=== PATIENT | female | born 1995 | race Caucasian/White ===

== ENCOUNTER 2017-11-25 00:51 | Emergency (ER) | payer SELFPAY ==
[2017-11-25] MEDS ORDERED: HYDROCODONE/ACETAMINOPHEN 5-325 MG TABLET PO ONE (02:23)
[2017-11-25] MEDS ORDERED: CLINDAMYCIN HCL 150 MG CAPSULE PO ONE (02:23)
--- NOTE | 2017-11-25 03:00 | ER Document Report ---
ED General - General Chief Complaint: Abscess Stated Complaint: BUMP UNDER LT ARMPIT Time Seen by Provider: 11/25/17 01:56 Mode of Arrival: Ambulatory Information source: Patient Notes: 22-year-old female patient who presents to the emergency department with several complaints. Patient reports pain to her right upper and lower teeth for the last 30 days. Patient reports that she last saw her dentist about 6 months ago and had a normal exam however patient reports that now she has found holes in her upper and lower teeth that have now began to cause her significant pain. Patient also reports possible abscess to her left axilla area. Patient reports that one area has been draining. Patient denies any history of same. Denies any history of MRSA. TRAVEL OUTSIDE OF THE [place] IN LAST 30 DAYS: No - Related Data Allergies/Adverse Reactions: latex Allergy (Verified 11/25/17 00:57) Past Medical History - General Information source: Patient - Social History Smoking Status: Never Smoker Frequency of alcohol use: None Drug Abuse: None Lives with: Parents Family History: Reviewed & Not Pertinent - Medical History Medical History: Negative Surgical Hx: Negative Review of Systems - Review of Systems Constitutional: No symptoms reported EENT: Dental problem Cardiovascular: No symptoms reported Respiratory: No symptoms reported Gastrointestinal: No symptoms reported Genitourinary: No symptoms reported Female Genitourinary: No symptoms reported Musculoskeletal: No symptoms reported Skin: Lumps - Left axilla Hematologic/Lymphatic: No symptoms reported Neurological/Psychological: No symptoms reported Physical Exam - Vital signs Vitals: Temp Pulse Resp BP Pulse Ox 98.1 F 82 16 121/60 100 11/25/17 01:37 11/25/17 01:37 11/25/17 01:37 11/25/17 01:37 11/25/17 01:37 - Notes Notes: PHYSICAL EXAMINATION: GENERAL: Well-appearing, well-nourished and in no acute distress. HEAD: Atraumatic, normocephalic. EYES: Pupils equal round and reactive to light, extraocular movements intact, conjunctiva are normal. ENT: Nares patent, oropharynx clear without exudates. Moist mucous membranes. Multiple dental carries to right upper and lower teeth. NECK: Normal range of motion, supple without lymphadenopathy LUNGS: Breath sounds clear to auscultation bilaterally and equal. No wheezes rales or rhonchi. HEART: Regular rate and rhythm without murmurs ABDOMEN: Soft, nontender, nondistended abdomen. No guarding, no rebound. No masses appreciated. Female : deferred Musculoskeletal: Normal range of motion, no pitting or edema. No cyanosis. NEUROLOGICAL: Cranial nerves grossly intact. Normal speech, normal gait. Normal sensory, motor exams PSYCH: Normal mood, normal affect. SKIN: Multiple areas of redness and swelling noted to left axilla. One large area with fluctuance and induration noted. Course - Re-evaluation Re-evalutation: Incision and drainage performed to left axilla. Moderate amount of serosanguineous fluid removed. Patient did have persistent bleeding after the I &D. TXA was applied on the gauze pad to the wound with adequate hemostasis. Patient will be placed on Bactroban for possible folliculitis and also clindamycin to treat the abscess as well as the dental infection. Patient will be given contact info for [facility]. - Vital Signs Vital signs: Temp Pulse Resp BP Pulse Ox 98.0 F 94 20 117/70 99 11/25/17 03:30 11/25/17 03:30 11/25/17 03:30 11/25/17 03:30 11/25/17 03:30 Procedures - Incision and Drainage left axilla Type: Simple Anesthetic type: 1% Lidocaine mL's of anesthetic: 3 Blade size: 11 Incision Method: Incision made by scalpel Amount/type of drainage: serosanguinous Discharge - Discharge Clinical Impression: Folliculitis, Infected dental carries Condition: Stable Disposition: HOME, SELF-CARE Additional Instructions: Folliculitis You have a skin infection called folliculitis. This occurs when bacteria infect the hair follicles of the skin. Typically, redness and small pustules are found where hair shafts enter the skin. Allergy, surface irritation, shaving, and exposure to hot tubs predispose to folliculitis. The usual treatment is antibiotic ointment, sometimes combined with cortisone-type medication. Warm compresses are often used. If the infection has moved deeper into the skin, oral antibiotics may be necessary. To avoid future episodes of folliculitis, you must identify (if possible) the factors which allowed this infection to start. If you develop increasing pain, swelling, fever, or red streaks, call the doctor or return for re-evaluation. Dental Infection or Abscess You have an infection, perhaps an abscess (pus formation) of the gum around one of your teeth, which is probably decayed. If there is an abscess, it may drain on its own or it may need to be opened or lanced. Severe swelling or drainage around a tooth usually means a deep dental abscess which usually requires evaluation and treatment by a dentist or oral surgeon. Antibiotics may be prescribed while awaiting dental treatment. If you develop high fever with chills, worsening pain, or increasing swelling in the area, see a dentist or oral surgeon immediately or return to the Emergency Department immediately. Prescriptions: Clindamycin HCl 300 mg PO TID #21 capsule Ibuprofen 800 mg PO TID #30 tablet Mupirocin Calcium [Bactroban] 30 gm TP TID #30 gr Referrals: [facility] [Provider Group] - Follow up as needed
[2017-11-25] MEDS ORDERED: TRANEXAMIC ACID INJ/PF 1,000 MG/10 ML SDV IV ONE (03:45)
[2017-11-25 05:12] VITALS: BP 117/70
== END 2017-11-25 03:59 | disposition home or self-care (01) ==
LOC: ER 00:51
DX: L73.9 Follicular disorder, unspecified (principal); K04.7 Periapical abscess without sinus; K02.9 Dental caries, unspecified; K08.89 Other specified disorders of teeth and supporting structures; Z91.040 Latex allergy status
CPT/HCPCS: 99283; 96374; 10060; J3490

== ENCOUNTER 2020-04-12 14:45 | Inpatient (IN) | payer MEDICAID ==
--- NOTE | 2020-04-12 15:15 | ER Document Report ---
ED Medical Screen (RME) - General Chief Complaint: Shortness Of Breath Stated Complaint: SHORT OF BREATH,HEART BEATING FAST Time Seen by Provider: 04/12/20 15:08 Mode of Arrival: Wheelchair Information source: Patient Notes: 25-year-old female presented to ED for complaint of shortness of breath since yesterday. She states she does have a history of bronchitis and SVT. She does have a pulse of 129. Her lungs are clear at this time. She states she was afraid it is her heart. She is not complaining of pain but very short of breath unable to get a deep breath. I have ordered EKG blood work chest x-ray and Covid testing. Patient's lungs are clear to auscultation. I have greeted and performed a rapid initial assessment of this patient. A comprehensive ED assessment and evaluation of the patient, analysis of test results and completion of medical decision making process will be conducted by an additional ED providers. TRAVEL OUTSIDE OF THE [place] IN LAST 30 DAYS: No - Related Data Allergies/Adverse Reactions: latex Allergy (Verified 11/25/17 00:57) Past Medical History Renal/ Medical History: Denies: Hx Peritoneal Dialysis Physical Exam - Vital signs Vitals: Temp Pulse Resp BP Pulse Ox 98.6 F 129 H 20 145/94 H 100 04/12/20 14:50 04/12/20 14:50 04/12/20 14:50 04/12/20 14:50 04/12/20 14:50 Course - Vital Signs Vital signs: Temp Pulse Resp BP Pulse Ox 98.6 F 129 H 20 145/94 H 100 04/12/20 14:50 04/12/20 14:50 04/12/20 14:50 04/12/20 14:50 04/12/20 14:50
--- NOTE | 2020-04-12 16:01 | RADIOLOGY REPORT (SQ) ---
EXAM DESCRIPTION: CHEST SINGLE VIEW IMAGES COMPLETED DATE/TIME: 04/12/2020 3:50 pm REASON FOR STUDY: rapid heart rate short of breath COMPARISON: None. EXAM PARAMETERS: NUMBER OF VIEWS: One view. TECHNIQUE: Single frontal radiographic view of the chest acquired. RADIATION DOSE: NA LIMITATIONS: None. FINDINGS: LUNGS AND PLEURA: Faint density in the right upper lobe just below the level of the clavic le. A few streaky densities in the left lung base. No pleural effusion or pneumothorax. MEDIASTINUM AND HILAR STRUCTURES: No masses. Contour normal. HEART AND VASCULAR STRUCTURES: Heart normal in size. Normal vasculature. BONES: No acute findings. HARDWARE: None in the chest. OTHER: No other significant finding. IMPRESSION: FAINT DENSITY IN THE RIGHT UPPER LOBE SUSPICIOUS FOR PNEUMONIA. UNDERLYING MASS ALSO PO SSIBLE. POSSIBLE DEVELOPING PNEUMONIA IN THE LEFT LUNG BASE WELL. TECHNICAL DOCUMENTATION: JOB ID: [id number] 2010 [employer]- All Rights Reserved Reading location - IP/workstation name: [email or web address]
--- NOTE | 2020-04-12 16:38 | EKG REPORT ---
SEVERITY:- ABNORMAL ECG - SINUS TACHYCARDIA PROBABLE LEFT ATRIAL ABNORMALITY PROBABLE LEFT VENTRICULAR HYPERTROPHY INFERIOR Q WAVES, PROBABLY NORMAL VARIATION : Confirmed by: Dudley Santiago MD 12-Apr-2020 16:37:48
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
[2020-04-12] MEDS ORDERED: NORMAL SALINE 1000 ML 1,000 ML IV ONE (18:43)
[2020-04-12] MEDS ORDERED: KETOROLAC TROMETHAMINE INJ/PF 30 MG/1 ML SDV IV ONE (18:43)
[2020-04-12 20:06] LABS: ABSOLUTE LYMPHOCYTES (AUTO) 1.5 10^3/uL (0.5-4.7); ABSOLUTE MONOCYTES (AUTO) 0.9 10^3/uL (0.1-1.4); ABSOLUTE NEUT (AUTO) 9.9 10^3/uL (1.7-8.2); BASOPHILS % (AUTO) 0.2 % (0-2); EOSINOPHILS % (AUTO) 0.1 % (0-6); HEMATOCRIT 38.7 % (36.0-47.0); HEMOGLOBIN 13.4 g/dL (12.0-15.5); LYMPHOCYTES % (AUTO) 12.4 % (13-45); MEAN CORPUSCULAR HEMOGLOBIN 28.8 pg (27.0-33.4); MEAN CORPUSCULAR HGB CONC 34.7 g/dL (32.0-36.0); MEAN CORPUSCULAR VOLUME 83 fl (80-97); MONOCYTES % (AUTO) 6.9 % (3-13); PLATELET COUNT 202 10^3/uL (150-450); RED BLOOD COUNT 4.66 10^6/uL (3.72-5.28); SEGMENTED NEUTROPHILS % (AUTO) 80.4 % (42-78); TOTAL CELLS COUNTED % (AUTO) 100 %; WHITE BLOOD COUNT 12.3 10^3/uL (4.0-10.5)
[2020-04-12 20:24] LABS: A TYPE INFLUENZA AG NEGATIVE (NEGATIVE); B INFLUENZA AG NEGATIVE (NEGATIVE)
[2020-04-12 20:30] LABS: ALBUMIN 4.4 g/dL (3.5-5.0); ALKALINE PHOSPHATASE 102 U/L (38-126); ANION GAP 12 (5-19); ASPARTATE AMINO TRANSFERASE 100 U/L (14-36); BILIRUBIN,DIRECT 0.9 mg/dL (0.0-0.4); BILIRUBIN,TOTAL 1.9 mg/dL (0.2-1.3); BLOOD UREA NITROGEN 10 mg/dL (7-20); CALCIUM 9.4 mg/dL (8.4-10.2); CARBON DIOXIDE 23 mmol/L (22-30); CHLORIDE 95 mmol/L (98-107); GLUCOSE 121 mg/dL (75-110); POTASSIUM 4.3 mmol/L (3.6-5.0)
[2020-04-12 20:55] LABS: APPEARANCE,URINE SLIGHTLY-CLOUDY; BILIRUBIN,URINE SMALL (NEGATIVE); COLOR,URINE AMBER; GLUCOSE, URINE NEGATIVE (NEGATIVE); KETONES,URINE NEGATIVE (NEGATIVE); LEUKOCYTE ESTERASE,URINE NEGATIVE (NEGATIVE); NITRITE,URINE NEGATIVE (NEGATIVE); PROTEIN,URINE 100 mg/dL (NEGATIVE); URINE SPECIFIC GRAVITY 1.031
[2020-04-12] MEDS ORDERED: AZITHROMYCIN INJ 500 MG VIAL IV ONE (21:04)
[2020-04-12] MEDS ORDERED: CEFTRIAXONE 1 GM/D5W RTU 1 GM/50 ML RTUPB IV ONE (21:04)
[2020-04-12] MEDS ORDERED: DEXAMETHASONE SOD PHOS INJ 10 MG/1 ML VIAL IV ONE (21:05)
[2020-04-12 21:12] LABS: URINE BARBITURATES SCREEN NEGATIVE; URINE BENZODIAZEPINES SCREEN NEGATIVE; URINE COCAINE SCREEN NEGATIVE; URINE METHADONE SCREEN NEGATIVE; URINE PHENCYCLIDINE SCREEN NEGATIVE
--- NOTE | 2020-04-12 21:13 | RADIOLOGY REPORT (SQ) ---
EXAM DESCRIPTION: CT CHEST ANGIOGRAPHY WITHOUT THEN WITH IV CONTRAST COMPLETED DATE/TME: 04/12/2020 18:25 CLINICAL HISTORY: 25 years, Female, sob, pleuritic pain, possibel pneumonia COMPARISON: Chest radiograph performed earlier the same day TECHNIQUE: Contrast enhanced CT chest was acquired. Images were obtained after the administration of 63 mL of Omnipaque 350 intravenous contrast. MIPS were created. Images stored on PACS. All CT scanners at this facility use dose modulation, iterative reconstruction, and/or weight based dosing when appropriate to reduce radiation dose to as low as reasonably achievable (ALARA). [facility]: Dose Right [facility]: CareDose [facility]: Dose Right [facility]: Teradose 4D [facility]: Bunkr LIMITATIONS: None. FINDINGS: Central airways are patent. Lung windows show multifocal nodular consolidative opacities throughout the periphery of both lungs, some of which appear masslike. More confluent areas of consolidation are evident about the right middle lobe medial segment, lingula, and superior segment of the right lower lobe. A few of the more nodular areas of consolidation are as follows: Nodular consolidative opacity located within the paramediastinal right lower lobe on image 77 of series 4 measuring 2.0 x 1.3 cm in size. Additional subpleural nodule within the right lower lobe measuring 0.9 x 0.7 cm in size on image 67 of series 4. Mediastinal windows show a few mildly prominent left supraclavicular lymph nodes. For example, there is an enlarged left supraclavicular lymph node on image 27 of series 2 measuring 1.5 x 1.0 cm in size. An additional enlarged right hilar lymph node is evident measuring 1.7 x 1.2 cm in size on image 97 of series 2. Prep there is also a mildly enlarged right paratracheal lymph node on image 21 of series 3 measuring 1.1 x 1.5 cm in size. Heart shows no suspicious abnormality. The study is substantially limited for the evaluation of pulmonary emboli secondary to inadequate contrast bolus timing. No large central filling defect is identified. The graft Limited evaluation of the upper abdomen reveals that the liver is diffusely heterogenous in attenuation, especially throughout the right hepatic lobe. No additional suspicious findings are evident within the imaged upper abdomen. Bone windows show no destructive osseous lesions. IMPRESSION: Substantially limited evaluation for pulmonary emboli secondary to inadequate contrast bolus timing. No large central filling defect identified. Multifocal consolidative opacity throughout both lungs, much of which appears nodular. Given the patient's age, this is most likely indicative of a multifocal atypical infectious/inflammatory process (to include septic emboli given the peripheral predominance). Follow-up to clearing is recommended. Diffusely heterogeneously attenuating liver parenchyma, especially about the right hepatic lobe, indeterminate. This could indicate geographic areas of hepatic steatosis. Recommend definitive assessment with multiphasic CT or MR of the abdomen. Left supraclavicular, mediastinal, and right hilar lymph node enlargement, presumably reactive. This can also be reassessed for resolution on follow-up imaging. TECHNICAL DOCUMENTATION: Quality ID # [id number]: Final reports with documentation of one or more dose reduction techniques (e.g., Automated exposure control, adjustment of the mA and/or kV according to patient size, use of iterative reconstruction technique) copyright 2011 [employer]- All Rights Reserved
[2020-04-12 21:19] LABS: URINE MARIJUANA (THC) SCREEN UNCONFIRMED POSITIVE
[2020-04-12] MEDS ORDERED: VANCOMYCIN HCL INJ 1000 MG VIAL IV ONE (21:43)
[2020-04-12] MEDS ORDERED: DEXAMETHASONE SOD PHOS INJ 10 MG/1 ML VIAL ONE (22:07)
[2020-04-12] MEDS ORDERED: ONDANSETRON HCL INJ/PF 4 MG/2 ML SDV IV PRN (22:52)
[2020-04-12] MEDS ORDERED: VANCOMYCIN HCL 0 MG in DEXTROSE 5%-WATER 250 ML IV NR (23:15)
[2020-04-12] MEDS ORDERED: NICOTINE 14 MG/24 HR PATCH.TD24 TD ONE (23:20)
--- NOTE | 2020-04-12 23:22 | PDOC H&P ---
History of Present Illness Patient complains of: Shortness of breath. Chest pain History of Present Illness: CLAUDIO EPSTEIN is a 25 year old female with no significant past medical history apart from an episode of SVT 6 years back now presents with 2 days duration of sudden onset chest pain, shortness of breath. She reports that the chest pain was 10/10 intensity, sharp, aggravated by deep breathing and movement. She also endorses subjective fever but denies any history of cough, runny nose, sore throat, congestion, nausea, vomiting or diarrhea. She also denies palpitation, orthopnea, PND. She has a history of IV drug use about a month back, the exact name of the drug which she could not remember without intent to harm herself but currently she denies any suicidal ideation. Denies any history of leg swelling, long distance travel or prolonged immobilization. She has no self or family history of blood clots in the past and currently is not on any medication including control. She denies any recent sick contact history. Social History Smoking Status: Current Every Day Smoker Frequency of Alcohol Use: None Hx Recreational Drug Use: Yes Drugs: Marijuana, Other - Patient could not remember the name - Advance Directive Resuscitation Status: Full Code Family History Family History: Reviewed & Not Pertinent Parental Family History Reviewed: Yes Children Family History Reviewed: Yes Sibling(s) Family History Reviewed.: Yes Medication/Allergy Home Medications: No Home Medications 04/13/20 Allergies/Adverse Reactions: latex Allergy (Verified 11/25/17 00:57) Review of Systems Constitutional: PRESENT: as per HPI Eyes: ABSENT: visual disturbances Ears: ABSENT: hearing changes Nose, Mouth, and Throat: ABSENT: as per HPI, headache(s), mouth pain, sore throat, vertigo, other Cardiovascular: PRESENT: as per HPI Respiratory: PRESENT: as per HPI Gastrointestinal: ABSENT: abdominal pain, bloating, coffee ground emesis, constipation, diarrhea, dysphagia, heartburn, hematemesis, hematochezia, melena, nausea, vomiting, other Genitourinary: ABSENT: dysuria, hematuria Musculoskeletal: ABSENT: joint swelling Integumentary: ABSENT: rash, wounds Neurological: ABSENT: abnormal gait, abnormal speech, confusion, dizziness, focal weakness, syncope Psychiatric: ABSENT: anxiety, depression, homidical ideation, suicidal ideation Endocrine: ABSENT: cold intolerance, heat intolerance, polydipsia, polyuria Hematologic/Lymphatic: ABSENT: easy bleeding, easy bruising Physical Exam Vital Signs: Temp Pulse Resp BP Pulse Ox 99.9 F 125 H 14 119/66 99 04/12/20 19:45 04/12/20 19:45 04/12/20 22:01 04/12/20 22:01 04/12/20 22:01 Intake & Output 04/11/20 04/12/20 04/13/20 06:59 06:59 06:59 Intake Total 1050 Balance 1050 Weight 85.6 kg Additional comments: GENERAL APPEARANCE: in no acute distress. Alert and oriented x4 HEENT: Normocephalic and atraumatic. No scleral icterus. Moist oral mucosa NECK: Supple. No evidence of thyroid enlargement. No lymphadenopathy or tenderness. No carotid bruit. No JVD CHEST: Symmetric. Nontender to palpation. LUNGS: Breath sounds are equal and clear bilaterally. No wheezes, rhonchi, or rales. HEART: Regular rate and rhythm with normal S1 and S2. No murmurs, gallops, or rubs. ABDOMEN: Soft, flat, positive bowel sounds, no tenderness, guarding, or rigidity. No organomegaly or mass appreciated. No CVA tenderness. EXTREMITIES: No cyanosis, clubbing, or edema. MUSCULOSKELETAL: No deformity, atrophy or swelling noted PSYCHIATRIC: Recent and remote memory is intact. Appropriate mood and affect. SKIN: Warm, dry, and well perfused. No lesions or rashes are noted. NEUROLOGIC: No focal sensory or motor deficits are noted. Results Laboratory Results: 04/12/20 19:35 04/12/20 19:35 04/12/20 04/12/20 04/12/20 19:35 19:35 19:35 WBC 12.3 H RBC 4.66 Hgb 13.4 Hct 38.7 MCV 83 MCH 28.8 MCHC 34.7 RDW 14.0 Plt Count 202 Seg Neutrophils % 80.4 H Sodium 129.9 L Potassium 4.3 Chloride 95 L Carbon Dioxide 23 Anion Gap 12 BUN 10 Creatinine 0.49 L Est GFR ( Amer) > 60 Glucose 121 H Calcium 9.4 Magnesium Total Bilirubin 1.9 H AST 100 H Alkaline Phosphatase 102 Total Protein 8.0 Albumin 4.4 Serum HCG, Qual NEGATIVE Urine Color Urine Appearance Urine pH Ur Specific [place] Urine Protein Urine Glucose (UA) Urine Ketones Urine Blood Urine Nitrite Ur Leukocyte Esterase Urine WBC (Auto) Urine RBC (Auto) 04/12/20 04/12/20 19:35 20:30 WBC RBC Hgb Hct MCV MCH MCHC RDW Plt Count Seg Neutrophils % Sodium Potassium Chloride Carbon Dioxide Anion Gap BUN Creatinine Est GFR ( Amer) Glucose Calcium Magnesium 1.9 Total Bilirubin AST Alkaline Phosphatase Total Protein Albumin Serum HCG, Qual Urine Color EDDIE Urine Appearance SLIGHTLY-CLOUDY Urine pH 5.0 Ur Specific [place] 1.031 Urine Protein 100 H Urine Glucose (UA) NEGATIVE Urine Ketones NEGATIVE Urine Blood NEGATIVE Urine Nitrite NEGATIVE Ur Leukocyte Esterase NEGATIVE Urine WBC (Auto) 2 Urine RBC (Auto) 13 04/12/20 19:35 Troponin I < 0.012 Impressions: Chest X-Ray 04/12/20 15:09 IMPRESSION: FAINT DENSITY IN THE RIGHT UPPER LOBE SUSPICIOUS FOR PNEUMONIA. UNDERLYING MASS ALSO POSSIBLE. POSSIBLE DEVELOPING PNEUMONIA IN THE LEFT LUNG BASE WELL. Chest/Abdomen CTA 04/12/20 18:25 IMPRESSION: Substantially limited evaluation for pulmonary emboli secondary to inadequate contrast bolus timing. No large central filling defect identified. Multifocal consolidative opacity throughout both lungs, much of which appears nodular. Given the patient's age, this is most likely indicative of a multifocal atypical infectious/inflammatory process (to include septic emboli given the peripheral predominance). Follow-up to clearing is recommended. Diffusely heterogeneously attenuating liver parenchyma, especially about the right hepatic lobe, indeterminate. This could indicate geographic areas of hepatic steatosis. Recommend definitive assessment with multiphasic CT or MR of the abdomen. Left supraclavicular, mediastinal, and right hilar lymph node enlargement, presumably reactive. This can also be reassessed for resolution on follow-up imaging. TECHNICAL DOCUMENTATION: Quality ID # [id number]: Final reports with documentation of one or more dose reduction techniques (e.g., Automated exposure control, adjustment of the mA and/or kV according to patient size, use of iterative reconstruction technique) copyright 2011 [id number]- All Rights Reserved Assessment and Plan - Diagnosis (1) Observation for suspected infectious endocarditis Is this a current diagnosis for this admission?: Yes Plan: Possible right-sided infective endocarditis Has 3 minor criterions: a history of IV drug use, subjective fever and possible septic pulmonary emboli 2 sets of blood culture have been obtained Started on vancomycin Obtain 2D echo in the morning (2) Pneumonia Qualifiers: Pneumonia type: due to unspecified organism Laterality: bilateral Lung location: unspecified part of lung Qualified Code(s): J18.9 - Pneumonia, unspecified organism Is this a current diagnosis for this admission?: Yes Plan: Patient presents with pleuritic chest pain and shortness of breath CTA chest showed multifocal consolidative opacities possibly infe ctious/inflammatory versus septic emboli Patient was given ceftriaxone and azithromycin at the ED Currently on vancomycin and will add azithromycin to cover atypicals Continue supportive management for fever Follow-up with blood culture (3) Suspected COVID-19 virus infection Is this a current diagnosis for this admission?: Yes Plan: Patient presents with shortness of breath, chest pain, subjective fever CTA chest concerning for multifocal pneumonia likely viral versus septic emboli Patient currently saturating well on room air denies cough On special enhanced airborne isolation Follow-up with COVID-19 result (4) Transaminitis Is this a current diagnosis for this admission?: Yes Plan: Liver enzymes are elevated on presentation CTA was suggestive of possible hepatic steatosis Will obtain hepatitis panel due to history of IV drug use Continue supportive care (5) Tobacco dependence Is this a current diagnosis for this admission?: Yes Plan: Counseled on the harms of smoking and advised her to quit Will place her on nicotine patch while inpatient (6) IV drug user Is this a current diagnosis for this admission?: Yes Plan: Patient reports a history of IV drug use few weeks back is the intent to harm herself Currently denies any suicidal or homicidal ideation Counseled and advised patient to quit IV drug abuse - Time Time Spent with patient: 35 or more minutes Total Critical Time (Minutes): 45 Smoking Cessation Education: 3 to 10 minutes Medications reviewed and adjusted accordingly: Yes Anticipated Discharge Disposition: Home, Self Care Anticipated Discharge Timeframe: within 72 hours - Inpatient Certification Based on my medical assessment, after consideration of the patient's comorbidities, presenting symptoms, or acuity I expect that the services needed warrant INPATIENT care.: Yes I certify that my determination is in accordance with my understanding of Medicare's requirements for reasonable and necessary INPATIENT services [42 CFR 412.3e].: Yes Medical Necessity: Need Close Monitoring Due to Risk of Patient Decompensation, Need For Continuous Telemetry Monitoring, Need for IV Antibiotics Post Hospital Care: D/C or Transfer Summary
[2020-04-13] MEDS: FAMOTIDINE 20 MG TABLET PO SCH ×3 (01:05→21:41)
[2020-04-13] MEDS: RINGERS SOLUTION,LACTATED 1,000 ML IV PRN ×2 (03:17→18:14)
[2020-04-13 04:22] LABS: ABSOLUTE LYMPHOCYTES (AUTO) 1.1 10^3/uL (0.5-4.7); ABSOLUTE MONOCYTES (AUTO) 0.4 10^3/uL (0.1-1.4); ABSOLUTE NEUT (AUTO) 10.3 10^3/uL (1.7-8.2); BASOPHILS % (AUTO) 0.1 % (0-2); EOSINOPHILS % (AUTO) 0.1 % (0-6); HEMATOCRIT 39.3 % (36.0-47.0); HEMOGLOBIN 13.4 g/dL (12.0-15.5); LYMPHOCYTES % (AUTO) 9.1 % (13-45); MEAN CORPUSCULAR HEMOGLOBIN 28.2 pg (27.0-33.4); MEAN CORPUSCULAR VOLUME 83 fl (80-97); MONOCYTES % (AUTO) 3.2 % (3-13); PLATELET COUNT 185 10^3/uL (150-450); RED BLOOD COUNT 4.73 10^6/uL (3.72-5.28); RED CELL DISTRIBUTION WIDTH 13.9 % (11.5-14.0); SEGMENTED NEUTROPHILS % (AUTO) 87.5 % (42-78); TOTAL CELLS COUNTED % (AUTO) 100 %; WHITE BLOOD COUNT 11.8 10^3/uL (4.0-10.5)
[2020-04-13 04:41] LABS: ALBUMIN 3.9 g/dL (3.5-5.0); ALKALINE PHOSPHATASE 92 U/L (38-126); ANION GAP 9 (5-19); ASPARTATE AMINO TRANSFERASE 73 U/L (14-36); BILIRUBIN,DIRECT 0.8 mg/dL (0.0-0.4); BILIRUBIN,TOTAL 1.5 mg/dL (0.2-1.3); BLOOD UREA NITROGEN 8 mg/dL (7-20); CALCIUM 9.4 mg/dL (8.4-10.2); CARBON DIOXIDE 26 mmol/L (22-30); CHLORIDE 101 mmol/L (98-107); GLUCOSE 189 mg/dL (75-110); POTASSIUM 4.1 mmol/L (3.6-5.0); TOTAL PROTEIN 7.5 g/dL (6.3-8.2)
[2020-04-13] MEDS: ENOXAPARIN SODIUM INJ 40 MG/0.4 ML DISP.SYRIN SUBCUT SCH (10:17)
[2020-04-13] MEDS ORDERED: PHARMACY COMMUNICATION ORDER MC NR (11:15)
[2020-04-13] MEDS: VANCOMYCIN HCL 1,500 MG in DEXTROSE 5%-WATER 250 ML IV SCH ×2 (11:30→18:14)
[2020-04-13] MEDS: AZITHROMYCIN 500 MG in DEXTROSE 5%-WATER 250 ML IV SCH (14:03)
--- NOTE | 2020-04-13 14:39 | PDOC PROGRESS REPORT ---
Subjective Progress Note for:: 04/13/20 Subjective:: Patient is resting upright in bed. She is pleasant and tells me she came in with concerns of chest pain and SOB. Denies SOB, chest pain, palpitations or cough. Her only complaint at this time that she feels achy and generally weak. No further complaints or concerns. Reason For Visit: POSSIBLE INFECTIVE ENDOCARDITIS COVID-19 SUSPECT Physical Exam Vital Signs: Temp Pulse Resp BP Pulse Ox 98.0 F 106 H 25 H 130/76 H 98 04/13/20 10:00 04/13/20 14:00 04/13/20 14:00 04/13/20 14:00 04/13/20 14:00 Intake & Output 04/12/20 04/13/20 04/14/20 06:59 06:59 06:59 Intake Total 1050 1150 Output Total 0 Balance 1050 1150 Weight 83.7 kg General appearance: PRESENT: no acute distress, cooperative, well-developed, well-nourished Head exam: PRESENT: atraumatic, normocephalic Eye exam: PRESENT: conjunctiva pink, EOMI. ABSENT: scleral icterus Mouth exam: PRESENT: moist, tongue midline Neck exam: PRESENT: full ROM. ABSENT: JVD, tenderness Respiratory exam: PRESENT: clear to auscultation otilia, symmetrical, unlabored. ABSENT: crackles, wheezes Cardiovascular exam: PRESENT: RRR, +S1, +S2, tachycardia. ABSENT: diastolic murmur, systolic murmur Pulses: PRESENT: normal radial pulses GI/Abdominal exam: PRESENT: normal bowel sounds, soft. ABSENT: firm, guarding, tenderness Extremities exam: PRESENT: full ROM. ABSENT: clubbing, pedal edema, tenderness Musculoskeletal exam: PRESENT: ambulatory, full ROM. ABSENT: deformity, dislocation Neurological exam: PRESENT: alert, awake, oriented to person, oriented to place, oriented to time, oriented to situation, CN II-XII grossly intact. ABSENT: motor sensory deficit Psychiatric exam: PRESENT: appropriate affect, normal mood. ABSENT: suicidal ideation Skin exam: PRESENT: dry, intact, warm Results Laboratory Results: 04/13/20 03:58 04/13/20 03:58 04/12/20 04/12/20 04/12/20 19:35 19:35 19:35 WBC 12.3 H RBC 4.66 Hgb 13.4 Hct 38.7 MCV 83 MCH 28.8 MCHC 34.7 RDW 14.0 Plt Count 202 Seg Neutrophils % 80.4 H Sodium 129.9 L Potassium 4.3 Chloride 95 L Carbon Dioxide 23 Anion Gap 12 BUN 10 Creatinine 0.49 L Est GFR ( Amer) > 60 Glucose 121 H Calcium 9.4 Magnesium Total Bilirubin 1.9 H AST 100 H Alkaline Phosphatase 102 Total Protein 8.0 Albumin 4.4 Serum HCG, Qual NEGATIVE Urine Color Urine Appearance Urine pH Ur Specific [place] Urine Protein Urine Glucose (UA) Urine Ketones Urine Blood Urine Nitrite Ur Leukocyte Esterase Urine WBC (Auto) Urine RBC (Auto) 04/12/20 04/12/20 04/13/20 19:35 20:30 03:58 WBC 11.8 H RBC 4.73 Hgb 13.4 Hct 39.3 MCV 83 MCH 28.2 MCHC 34.0 RDW 13.9 Plt Count 185 Seg Neutrophils % 87.5 H Sodium Potassium Chloride Carbon Dioxide Anion Gap BUN Creatinine Est GFR ( Amer) Glucose Calcium Magnesium 1.9 Total Bilirubin AST Alkaline Phosphatase Total Protein Albumin Serum HCG, Qual Urine Color EDDIE Urine Appearance SLIGHTLY-CLOUDY Urine pH 5.0 Ur Specific [place] 1.031 Urine Protein 100 H Urine Glucose (UA) NEGATIVE Urine Ketones NEGATIVE Urine Blood NEGATIVE Urine Nitrite NEGATIVE Ur Leukocyte Esterase NEGATIVE Urine WBC (Auto) 2 Urine RBC (Auto) 13 04/13/20 03:58 WBC RBC Hgb Hct MCV MCH MCHC RDW Plt Count Seg Neutrophils % Sodium 136.4 L Potassium 4.1 Chloride 101 Carbon Dioxide 26 Anion Gap 9 BUN 8 Creatinine 0.52 Est GFR ( Amer) > 60 Glucose 189 H Calcium 9.4 Magnesium Total Bilirubin 1.5 H AST 73 H Alkaline Phosphatase 92 Total Protein 7.5 Albumin 3.9 Serum HCG, Qual Urine Color Urine Appearance Urine pH Ur Specific [place] Urine Protein Urine Glucose (UA) Urine Ketones Urine Blood Urine Nitrite Ur Leukocyte Esterase Urine WBC (Auto) Urine RBC (Auto) 04/12/20 19:35 Troponin I < 0.012 Impressions: Chest X-Ray 04/12/20 15:09 IMPRESSION: FAINT DENSITY IN THE RIGHT UPPER LOBE SUSPICIOUS FOR PNEUMONIA. UNDERLYING MASS ALSO POSSIBLE. POSSIBLE DEVELOPING PNEUMONIA IN THE LEFT LUNG BASE WELL. Chest/Abdomen CTA 04/12/20 18:25 IMPRESSION: Substantially limited evaluation for pulmonary emboli secondary to inadequate contrast bolus timing. No large central filling defect identified. Multifocal consolidative opacity throughout both lungs, much of which appears nodular. Given the patient's age, this is most likely indicative of a multifocal atypical infectious/inflammatory process (to include septic emboli given the peripheral predominance). Follow-up to clearing is recommended. Diffusely heterogeneously attenuating liver parenchyma, especially about the right hepatic lobe, indeterminate. This could indicate geographic areas of hepatic steatosis. Recommend definitive assessment with multiphasic CT or MR of the abdomen. Left supraclavicular, mediastinal, and right hilar lymph node enlargement, presumably reactive. This can also be reassessed for resolution on follow-up imaging. TECHNICAL DOCUMENTATION: Quality ID # [id number]: Final reports with documentation of one or more dose reduction techniques (e.g., Automated exposure control, adjustment of the mA and/or kV according to patient size, use of iterative reconstruction technique) copyright 2011 [employer]- All Rights Reserved Assessment and Plan - Diagnosis (1) Observation for suspected infectious endocarditis Is this a current diagnosis for this admission?: Yes (2) Pneumonia Qualifiers: Pneumonia type: due to unspecified organism Laterality: bilateral Lung location: unspecified part of lung Qualified Code(s): J18.9 - Pneumonia, unspecified organism Is this a current diagnosis for this admission?: Yes (3) Suspected COVID-19 virus infection Is this a current diagnosis for this admission?: Yes (5) Transaminitis Is this a current diagnosis for this admission?: Yes (6) IV drug user Is this a current diagnosis for this admission?: Yes (7) Tobacco dependence Is this a current diagnosis for this admission?: Yes (8) Gram-positive cocci bacteremia Is this a current diagnosis for this admission?: Yes (9) Opioid dependence Qualifiers: Substance use status: uncomplicated Qualified Code(s): F11.20 - Opioid dependence, uncomplicated Is this a current diagnosis for this admission?: Yes - Plan Summary Summary: Observation for suspected infectious endocarditis Possible right-sided infective endocarditis Has 3 minor criterions: a history of IV drug use, subjective fever and possible septic pulmonary emboli BC pending Echo pending Tx: vancomycin Pneumonia: CTA chest showed multifocal consolidative opacities possibly infectious/inflammatory versus septic emboli Pleuritic CP and SOB have both improved. Tx: Vancomycin and azithromycin to cover atypicals Gram positive cocie bacteremia: Tx as above. Repeat BC pending. Suspected COVID-19 virus infection: CTA chest concerning for multifocal pneumonia likely viral versus septic emboli On special enhanced airborne isolation Follow-up with COVID-19 result Transaminitis Liver enzymes are elevated on presentation CTA was suggestive of possible hepatic steatosis Hepatitis panel pending Denies Abd pain at this time. Denies known hx hepatitis. Continue to monitor. Consider further imaging. Tobacco dependence: Encourage quitting. Cnt nicotine patch. IV drug user: Several weeks prior with intent to harm. Denies SI today. Counseled and advised patient to quit IV drug abuse Opiod dependence: Pt with history of opioid withdrawal. Initiate Suboxone if needed. - Time Time Spent with patient: 15-24 minutes Smoking Cessation Education: 3 to 10 minutes Medications reviewed and adjusted accordingly: Yes Anticipated Discharge Disposition: Home, Self Care Anticipated Discharge Timeframe: within 72 hours
--- NOTE | 2020-04-13 19:23 | XCELERA REPORT ---
[address] [address] Transthoracic Echocardiogram Report Name: CLAUDIO EPSTEIN Age: 25 yrs Gender: Female : 1995 Patient Status: Inpatient Patient Location: ICU^[id number] Study Date: 04/13/2020 10:06 AM History: Infective Endocsrditis Height: 66 in Weight: 188 lb BSA: 1.9 m2 Procedure: A complete two-dimensional transthoracic echocardiogram was performed (2D, M-mode, spectral and color flow Doppler). The study was technically difficult with many images being suboptimal in quality. Reason For Study: Possible infective endocarditis Previous Evaluation: No previous studies were available. History: Infective Endocsrditis. Ordering Physician: BIRGIT SANON Performed By: Yolanda Alvarez Interpretation Summary No obvious vegetation is noted. Consider JOAO if clinically indicated. Left ventricular systolic function is normal. The Ejection Fraction estimate is 55-60% The right ventricle is normal in size and function. There is a trace amount of mitral regurgitation There is no aortic valve stenosis There is a trace or physiologic amount of tricuspid regurgitation There is no pericardial effusion. No obvious vegetation is noted. Consider JOAO if clinically indicated. MMode/2D Measurements & Calculations RVDd: 2.4 cm LVIDd: 4.4 cm FS: 34.4 % Ao root diam: 2.1 cm IVSd: 0.97 cm LVIDs: 2.9 cm EDV(Teich): 89.0 ml Ao root area: 3.5 cm2 LVPWd: 0.97 cm ESV(Teich): 32.3 ml EF(Teich): 63.7 % Doppler Measurements & Calculations MV E max kelvin: MV dec slope: Ao V2 max: LV V1 max P.1 cm/sec 767.6 cm/sec2 160.5 cm/sec 5.4 mmHg MV A max kelvin: MV dec time: 0.14 secAo max PG: LV V1 max: 84.6 cm/sec 10.3 mmHg 116.6 cm/sec MV E/A: 1.3 PA V2 max: 108.9 cm/sec PA max P.7 mmHg Left Ventricle The left ventricle is normal in size. There is normal left ventricular wall thickness. Left ventricular systolic function is normal. The Ejection Fraction estimate is 55-60%. Doppler measurements suggest normal left ventricular diastolic function. No regional wall motion abnormalities noted. Right Ventricle The right ventricle is normal in size and function. Mitral Valve The mitral valve leaflets appear thickened, but open well. There is no evidence of mitral valve prolapse. There is no vegetation seen on the mitral valve. There is no mitral valve stenosis. There is a trace amount of mitral regurgitation. Aortic Valve The aortic valve is trileaflet. The aortic valve opens well. The aortic valve is not well visualized secondary to technical limitations. There is no aortic valvular vegetation. There is no aortic valve stenosis. No aortic regurgitation is present. Tricuspid Valve The tricuspid valve is normal in structure and function. There is no tricuspid valve vegetation. There is no tricuspid stenosis. There is a trace or physiologic amount of tricuspid regurgitation. Tricuspid regurgitation jet envelope not well defined to measure RV systolic pressure accurately. Pulmonic Valve The pulmonic valve is normal in structure and function. There is no vegetation on the pulmonic valve. There is no pulmonic valvular stenosis. There is a trace amount of pulmonic regurgitation. Great Vessels The aortic root is normal size. The inferior vena cava appeared normal and decreased > 50% with respiration (RAP 5-10 mmHg). Effusions There is no pericardial effusion. : BIRGIT SANON Anil
[2020-04-13] MEDS: NICOTINE 14 MG/24 HR PATCH.TD24 TD SCH (21:41)
[2020-04-14] MEDS: VANCOMYCIN HCL 1,500 MG in DEXTROSE 5%-WATER 250 ML IV SCH ×2 (01:18→10:52)
[2020-04-14 04:27] LABS: HEMATOCRIT 34.5 % (36.0-47.0); HEMOGLOBIN 11.9 g/dL (12.0-15.5); MEAN CORPUSCULAR HEMOGLOBIN 28.6 pg (27.0-33.4); MEAN CORPUSCULAR HGB CONC 34.5 g/dL (32.0-36.0); MEAN CORPUSCULAR VOLUME 83 fl (80-97); PLATELET COUNT 245 10^3/uL (150-450); RED BLOOD COUNT 4.17 10^6/uL (3.72-5.28); RED CELL DISTRIBUTION WIDTH 13.7 % (11.5-14.0); WHITE BLOOD COUNT 11.3 10^3/uL (4.0-10.5)
[2020-04-14 04:44] LABS: ANION GAP 14 (5-19); BLOOD UREA NITROGEN 11 mg/dL (7-20); CARBON DIOXIDE 20 mmol/L (22-30); CHLORIDE 105 mmol/L (98-107); GLUCOSE 174 mg/dL (75-110); POTASSIUM 3.7 mmol/L (3.6-5.0)
[2020-04-14] MEDS: RINGERS SOLUTION,LACTATED 1,000 ML IV PRN (06:12)
[2020-04-14] MEDS ORDERED: ONDANSETRON HCL INJ/PF 4 MG/2 ML SDV IV PRN (08:00)
[2020-04-14] MEDS ORDERED: DEXTROSE 40% GEL 15 GM TUBE PO PRN ×2 (10:19)
[2020-04-14] MEDS ORDERED: GLUCAGON,HUMAN RECOMB 1 MG INJ SUBCUT PRN (10:19)
[2020-04-14] MEDS ORDERED: DEXTROSE 50%-WATER 25 GM/50 ML DISP.SYRIN IV PRN ×2 (10:19)
[2020-04-14] MEDS: ENOXAPARIN SODIUM INJ 40 MG/0.4 ML DISP.SYRIN SUBCUT SCH (10:38)
[2020-04-14] MEDS: NICOTINE 14 MG/24 HR PATCH.TD24 TD SCH (10:38)
[2020-04-14] MEDS: AZITHROMYCIN 500 MG in DEXTROSE 5%-WATER 250 ML IV SCH (10:40)
[2020-04-14] MEDS: FAMOTIDINE 20 MG TABLET PO SCH ×2 (10:41→21:35)
[2020-04-14 10:58] LABS: VANCOMYCIN,TROUGH 11.1 ug/mL (5.0-20.0)
[2020-04-14] MEDS ORDERED: METHADONE HCL 10 MG TABLET PO SCH (14:00)
[2020-04-14] MEDS: VANCOMYCIN HCL 1,250 MG in DEXTROSE 5%-WATER 250 ML IV SCH ×2 (14:56→20:11)
--- NOTE | 2020-04-14 15:50 | PDOC PROGRESS REPORT ---
Subjective Progress Note for:: 04/14/20 Subjective:: Patient is resting upright in bed. Overall she is feeling better though reports continued chest discomfort and shortness of breath. Reviewed history with patient. Reports to frequency IV drug use in past month. Further notes history of opiod use, previously treated at methadone clinic locally with last treatment approximately one month ago. She discontinued treatment due to tedious nature of obtaining medication. She has history of opiod withdrawal at which she experiences chills, restlessness, excessive yawning, sweating, palpitations and anxiety. Last opiod use 04/12/2020 prior to presenting to ED. She complaints of restlessness, anxiety and excessive yawning at this time. No further complaints or concerns. Per nurse pt is consistently tachycardic with heart rate 110s. No further concerns or comments. Reason For Visit: POSSIBLE INFECTIVE ENDOCARDITIS COVID-19 SUSPECT Physical Exam Vital Signs: Temp Pulse Resp BP Pulse Ox 98.0 F 108 H 33 H 116/73 100 04/14/20 12:00 04/14/20 12:00 04/14/20 13:00 04/14/20 12:25 04/14/20 13:00 Intake & Output 04/13/20 04/14/20 04/15/20 06:59 06:59 06:59 Intake Total 1050 3750 Output Total 750 300 Balance 1050 3000 -300 Weight 83.7 kg 85.2 kg General appearance: PRESENT: no acute distress, cooperative, well-developed Head exam: PRESENT: atraumatic, normocephalic Eye exam: PRESENT: EOMI. ABSENT: scleral icterus Mouth exam: PRESENT: moist, tongue midline Neck exam: PRESENT: full ROM. ABSENT: JVD, tenderness Respiratory exam: PRESENT: clear to auscultation otilia, symmetrical, unlabored. ABSENT: chest wall tenderness, tachypnea, wheezes Cardiovascular exam: PRESENT: +S1, +S2, tachycardia. ABSENT: diastolic murmur, systolic murmur GI/Abdominal exam: PRESENT: normal bowel sounds, soft. ABSENT: ascites, distended, firm, tenderness Extremities exam: PRESENT: full ROM. ABSENT: clubbing, pedal edema, tenderness Musculoskeletal exam: PRESENT: ambulatory, full ROM. ABSENT: deformity, dislocation Neurological exam: PRESENT: alert, awake, oriented to person, oriented to place, oriented to time, oriented to situation, CN II-XII grossly intact. ABSENT: altered, motor sensory deficit Psychiatric exam: PRESENT: anxious, other - Patient becomes teary on exam stating that she feels stupid for doing this to herself Skin exam: PRESENT: dry, intact, warm. ABSENT: erythema Results Laboratory Results: 04/14/20 03:49 04/14/20 10:13 04/14/20 04/14/20 04/14/20 03:49 03:49 10:13 WBC 11.3 H RBC 4.17 Hgb 11.9 L Hct 34.5 L MCV 83 MCH 28.6 MCHC 34.5 RDW 13.7 Plt Count 245 Sodium 139.2 Potassium 3.7 Chloride 105 Carbon Dioxide 20 L Anion Gap 14 BUN 11 Creatinine 0.51 L 0.52 Est GFR ( Amer) > 60 > 60 Glucose 174 H Calcium 9.0 04/12/20 19:35 Troponin I < 0.012 Impressions: Chest X-Ray 04/12/20 15:09 IMPRESSION: FAINT DENSITY IN THE RIGHT UPPER LOBE SUSPICIOUS FOR PNEUMONIA. UNDERLYING MASS ALSO POSSIBLE. POSSIBLE DEVELOPING PNEUMONIA IN THE LEFT LUNG BASE WELL. Chest/Abdomen CTA 04/12/20 18:25 IMPRESSION: Substantially limited evaluation for pulmonary emboli secondary to inadequate contrast bolus timing. No large central filling defect identified. Multifocal consolidative opacity throughout both lungs, much of which appears nodular. Given the patient's age, this is most likely indicative of a multifocal atypical infectious/inflammatory process (to include septic emboli given the peripheral predominance). Follow-up to clearing is recommended. Diffusely heterogeneously attenuating liver parenchyma, especially about the right hepatic lobe, indeterminate. This could indicate geographic areas of hepatic steatosis. Recommend definitive assessment with multiphasic CT or MR of the abdomen. Left supraclavicular, mediastinal, and right hilar lymph node enlargement, presumably reactive. This can also be reassessed for resolution on follow-up imaging. TECHNICAL DOCUMENTATION: Quality ID # 436: Final reports with documentation of one or more dose reduction techniques (e.g., Automated exposure control, adjustment of the mA and/or kV according to patient size, use of iterative reconstruction technique) copyright 2011 [employer]- All Rights Reserved Assessment and Plan - Diagnosis (1) Gram-positive cocci bacteremia Is this a current diagnosis for this admission?: Yes (2) Observation for suspected infectious endocarditis Is this a current diagnosis for this admission?: Yes (3) Pneumonia Qualifiers: Pneumonia type: due to unspecified organism Laterality: bilateral Lung location: unspecified part of lung Qualified Code(s): J18.9 - Pneumonia, unspecified organism Is this a current diagnosis for this admission?: Yes (5) Transaminitis Is this a current diagnosis for this admission?: Yes (6) IV drug user Is this a current diagnosis for this admission?: Yes (7) Opioid dependence Qualifiers: Substance use status: uncomplicated Qualified Code(s): F11.20 - Opioid dependence, uncomplicated Is this a current diagnosis for this admission?: Yes (8) Opioid withdrawal Is this a current diagnosis for this admission?: Yes (9) Tobacco dependence Is this a current diagnosis for this admission?: Yes (10) Suspected COVID-19 virus infection Is this a current diagnosis for this admission?: Yes - Plan Summary Summary: 04/14/2020: Suspected Infectious Endocarditis: Possible R-sided endocarditis as supported by minor criterion. - TTE without vegitations - JOOA due to high clinical suspicion, scheduled for Saturday. - Tx: Continue Vanc (Therapy initiated 04/12) - Vanc dose as per pharmacy, monitor vanc trough Pneumonia: CTA with evidence multifocal consolidative opacities possibly infectious/inflammatory versus septic emboli. - Cnt Vanc and Azithro therapy (Azithro for atypical coverage as per CT findings) - Azithro start date 04/13/2020 Gram positive cocci bacteremia: 04/12/2020 culture positive x2 - Repeat culture pending - Tx as above Tachycardia: HR consistently >100. Secondary to bacteremia. Monitor. Suspect COVID-19: Covid-19 negative. Remove from isolation. Transaminitis: Elevated liver enzymes on presentation. CT abd suggestive of hepatic steatosis - Hep panel results pending - No tx at this time Opiod dependence: Long standing hx opiod use. Previously treated with Methadone with last dose approximately x1 month ago. Admits to non-compliance due to tedious nature of medication management. - Last opiod use just prior to admission 04/12 - Hx of withdrawal in past - Reports current withdrawal symptoms including restlessness, anxiety, excessive yawning. - Discussed treatment options to include methadone vs subutex in detail. - Tx with methadone. Acute opiod withdrawal: Tx as above. IV drug use: Today admits to frequent IV drug use in the past month. Expresses guilt in use and interest in sobriety. Tobacco dependence: Provided >3 minutes of encouragement and education on quitting smoking. - Nicotine patch available if needed - Time Time Spent with patient: 15-24 minutes Medications reviewed and adjusted accordingly: Yes Anticipated Discharge Disposition: Home, Self Care Anticipated Discharge Timeframe: undetermined at this time
[2020-04-14] MEDS: LORAZEPAM 1 MG TABLET PO PRN ×2 (17:10→20:12)
[2020-04-14] MEDS: METHADONE HCL 10 MG TABLET PO SCH (21:35)
[2020-04-14] MEDS: ACETAMINOPHEN 325 MG TABLET PO PRN (21:36)
[2020-04-15] MEDS: RINGERS SOLUTION,LACTATED 1,000 ML IV PRN (01:28)
[2020-04-15] MEDS: LORAZEPAM 1 MG TABLET PO PRN ×5 (01:30→20:45)
[2020-04-15] MEDS: VANCOMYCIN HCL 1,250 MG in DEXTROSE 5%-WATER 250 ML IV SCH ×4 (03:54→23:17)
[2020-04-15] MEDS: METHADONE HCL 10 MG TABLET PO SCH ×3 (05:35→22:01)
[2020-04-15 06:11] LABS: HEMATOCRIT 32.1 % (36.0-47.0); HEMOGLOBIN 11.3 g/dL (12.0-15.5); MEAN CORPUSCULAR HEMOGLOBIN 28.9 pg (27.0-33.4); MEAN CORPUSCULAR HGB CONC 35.2 g/dL (32.0-36.0); MEAN CORPUSCULAR VOLUME 82 fl (80-97); PLATELET COUNT 277 10^3/uL (150-450); RED BLOOD COUNT 3.91 10^6/uL (3.72-5.28); RED CELL DISTRIBUTION WIDTH 14.1 % (11.5-14.0); WHITE BLOOD COUNT 8.8 10^3/uL (4.0-10.5)
[2020-04-15 06:35] LABS: ANION GAP 9 (5-19); BLOOD UREA NITROGEN 8 mg/dL (7-20); CALCIUM 8.8 mg/dL (8.4-10.2); CARBON DIOXIDE 25 mmol/L (22-30); CHLORIDE 105 mmol/L (98-107); GLUCOSE 89 mg/dL (75-110); POTASSIUM 3.7 mmol/L (3.6-5.0)
[2020-04-15 06:37] LABS: HEPATITS B SURFACE ANTIGEN Negative (Negative)
[2020-04-15 06:49] LABS: HEPATITIS C VIRUS ANTIBODY >11.0 s/co ratio (0.0-0.9)
[2020-04-15] MEDS: ENOXAPARIN SODIUM INJ 40 MG/0.4 ML DISP.SYRIN SUBCUT SCH (10:32)
[2020-04-15] MEDS: FAMOTIDINE 20 MG TABLET PO SCH ×2 (10:33→22:01)
[2020-04-15] MEDS: NICOTINE 14 MG/24 HR PATCH.TD24 TD SCH (10:37)
[2020-04-15 11:07] LABS: VANCOMYCIN,TROUGH 21.2 ug/mL (5.0-20.0)
[2020-04-15] MEDS: AZITHROMYCIN 500 MG in DEXTROSE 5%-WATER 250 ML IV SCH (14:26)
--- NOTE | 2020-04-15 15:52 | RADIOLOGY REPORT (SQ) ---
EXAM DESCRIPTION: PICC INSERTION IMAGES COMPLETED DATE/TIME: 04/15/2020 3:17 pm REASON FOR STUDY: poor access, needs long-term IV antibiotics COMPARISON: None. FLUOROSCOPY TIME: 0.5 minutes 1 images saved to PACS. TECHNIQUE: Fluoroscopic and ultrasound guided PICC placement. LIMITATIONS: None. PROCEDURE: After written consent and assessment were obtained, the patient was brought into the fluo roscopy room and placed supine on the table. Ultrasound evaluation of potential access sites were per formed. After successfully identifying a patent right upper extremity basilic vein, the right upper a rm was prepped and draped in a sterile fashion along with the ultrasound probe. The entry site was an esthetized with 1% lidocaine. A 21 gauge 7 cm needle was advanced through the skin and into the right basilic vein under live ultrasound guidance. An ultrasound image was saved to PACS confirming acces s site. A .018 guide wire was then inserted through the needle and into the venous system. The needl e was then removed and an 11 blade scalpel was used to make a 1cm skin incision. A 5 fr peel-away sh eath was advanced over the wire and into the venous system. A measurement was then made using the exi sting wire and live fluoroscopic guidance. The wire was then removed and trimmed. The PICC was advanc ed through the peel-away sheath and into the venous system. The peel-away sheath was removed and the catheter was adhered to the patients arm with a stat lock. The catheter was then aspirated and flushe d and a sterile bandage was placed over the access site. A fluoroscopic spot image was saved to PACS confirming the catheter tip within the SVC. IMPRESSION: SUCCESSFUL PLACEMENT OF A 5 FR DUAL LUMEN 38 CM PICC IN THE LEFT BASILIC VEIN. COMMENT: Patient medication list reviewed: Yes- Quality ID# 130:Eligible professional attests to doc umenting in the medical record they obtained, updated, or reviewed the patient's current medications. . Quality ID 145: Final reports for procedures using fluoroscopy that document radiation exposure daniel carrie, or exposure time and number of fluorographic images (if radiation exposure indices are not avail able) Quality ID #76: The patient was prepped and draped using maximum sterile barrier technique including cap, mask, sterile gown, sterile gloves, a large sterile sheet, hand hygiene, and 2% Chlorhexidine fo r cutaneous antisepsis. When ultrasound is used, sterile ultrasound techniques are followed requiring sterile gel and sterile probes. TECHNICAL DOCUMENTATION: JOB ID: [id number] 2010 [employer]- All Rights Reserved rev-10/25 Reading location - IP/workstation name: [email or web address]
--- NOTE | 2020-04-15 19:02 | PDOC PROGRESS REPORT ---
Subjective Progress Note for:: 04/15/20 Subjective:: Patient resting in bed, wakes easily when I enter room. Reports overall improvement in symptoms. Denies CP or SOB. States improvement of withdrawal symptoms with methadone. Has requested ativan frequently for anxiety. She is happy to be off isolation and excited to see her mom. We discussed her history of attempted SI, depression and anxiety. Denies psychiatric attention in the past, interested today. Denies SI or desire to hurt herself. Discussed case with pt's nurse. Difficulty obtaining line, failed attempt with US guidance. PICC line placed. No further complaints or concerns. Reason For Visit: POSSIBLE INFECTIVE ENDOCARDITIS COVID-19 SUSPECT Physical Exam Vital Signs: Temp Pulse Resp BP Pulse Ox 98.0 F 100 20 126/66 H 100 04/15/20 11:43 04/15/20 14:00 04/15/20 11:43 04/15/20 11:43 04/15/20 11:43 Intake & Output 04/14/20 04/15/20 04/16/20 06:59 06:59 06:59 Intake Total 3750 3100 1696 Output Total 750 300 800 Balance 3000 2800 896 Weight 85.2 kg 84.2 kg Additional comments: General appearance: PRESENT: no acute distress, cooperative, well-developed Head exam: PRESENT: atraumatic, normocephalic Eye exam: PRESENT: EOMI. ABSENT: scleral icterus Mouth exam: PRESENT: moist, tongue midline Neck exam: PRESENT: full ROM. ABSENT: JVD, tenderness Respiratory exam: PRESENT: clear to auscultation otilia, symmetrical, unlabored. ABSENT: chest wall tenderness, tachypnea, wheezes Cardiovascular exam: PRESENT: +S1, +S2, tachycardia. ABSENT: diastolic murmur, systolic murmur GI/Abdominal exam: PRESENT: normal bowel sounds, soft. ABSENT: ascites, distended, firm, tenderness Extremities exam: PRESENT: full ROM. ABSENT: clubbing, pedal edema, tenderness Musculoskeletal exam: PRESENT: ambulatory, full ROM. ABSENT: deformity, dislocation Neurological exam: PRESENT: alert, awake, oriented to person, oriented to place, oriented to time, oriented to situation, CN II-XII grossly intact. ABSENT: altered, motor sensory deficit Psychiatric exam: PRESENT: anxious, other - Patient becomes teary on exam stating that she would like psychiatric assistance Skin exam: PRESENT: dry, intact, warm. ABSENT: erythema Results Laboratory Results: 04/15/20 05:41 04/15/20 05:41 04/15/20 04/15/20 05:41 05:41 WBC 8.8 RBC 3.91 Hgb 11.3 L Hct 32.1 L MCV 82 MCH 28.9 MCHC 35.2 RDW 14.1 H Plt Count 277 Sodium 139.1 Potassium 3.7 Chloride 105 Carbon Dioxide 25 Anion Gap 9 BUN 8 Creatinine 0.56 Est GFR ( Amer) > 60 Glucose 89 Calcium 8.8 04/12/20 22:55 Blood Blood Culture (PCR) - Final Staphylococcus Aureus 04/12/20 19:35 Troponin I < 0.012 Impressions: Chest X-Ray 04/12/20 15:09 IMPRESSION: FAINT DENSITY IN THE RIGHT UPPER LOBE SUSPICIOUS FOR PNEUMONIA. UNDERLYING MASS ALSO POSSIBLE. POSSIBLE DEVELOPING PNEUMONIA IN THE LEFT LUNG BASE WELL. Chest/Abdomen CTA 04/12/20 18:25 IMPRESSION: Substantially limited evaluation for pulmonary emboli secondary to inadequate contrast bolus timing. No large central filling defect identified. Multifocal consolidative opacity throughout both lungs, much of which appears nodular. Given the patient's age, this is most likely indicative of a multifocal atypical infectious/inflammatory process (to include septic emboli given the peripheral predominance). Follow-up to clearing is recommended. Diffusely heterogeneously attenuating liver parenchyma, especially about the right hepatic lobe, indeterminate. This could indicate geographic areas of hepatic steatosis. Recommend definitive assessment with multiphasic CT or MR of the abdomen. Left supraclavicular, mediastinal, and right hilar lymph node enlargement, presumably reactive. This can also be reassessed for resolution on follow-up imaging. TECHNICAL DOCUMENTATION: Quality ID # 436: Final reports with documentation of one or more dose reduction techniques (e.g., Automated exposure control, adjustment of the mA and/or kV according to patient size, use of iterative reconstruction technique) copyright 2011 [employer]- All Rights Reserved Assessment and Plan - Diagnosis (1) Gram-positive cocci bacteremia Is this a current diagnosis for this admission?: Yes (2) Observation for suspected infectious endocarditis Is this a current diagnosis for this admission?: Yes (3) Pneumonia Qualifiers: Pneumonia type: due to unspecified organism Laterality: bilateral Lung location: unspecified part of lung Qualified Code(s): J18.9 - Pneumonia, unspecified organism Is this a current diagnosis for this admission?: Yes (5) Transaminitis Is this a current diagnosis for this admission?: Yes (6) IV drug user Is this a current diagnosis for this admission?: Yes (7) Opioid dependence Qualifiers: Substance use status: uncomplicated Qualified Code(s): F11.20 - Opioid depe ndence, uncomplicated Is this a current diagnosis for this admission?: Yes (8) Anxiety and depression Is this a current diagnosis for this admission?: Yes (9) Previous known suicide attempt Is this a current diagnosis for this admission?: Yes (10) Opioid withdrawal Is this a current diagnosis for this admission?: Yes (11) Tobacco dependence Is this a current diagnosis for this admission?: Yes (12) Suspected COVID-19 virus infection Is this a current diagnosis for this admission?: Yes Plan: COVID negative. - Plan Summary Summary: Suspected Infectious Endocarditis: Possible R-sided endocarditis as supported by minor criterion. - TTE without vegitations - JOAO due to high clinical suspicion, scheduled for Saturday. - Tx: Continue Vanc (Therapy initiated 04/12) - Vanc dose as per pharmacy, monitor vanc trough Pneumonia: CTA with evidence multifocal consolidative opacities possibly infectious/inflammatory versus septic emboli. - Cnt Vanc and Azithro therapy (Azithro for atypical coverage as per CT findings) - Azithro start date 04/13/2020 Gram positive cocci bacteremia: 04/12/2020 culture + wit MRSA x2 - Repeat cultures without growth in 48 and 24 hours. - Tx as above Opiod dependence: Long standing hx opiod use. Previously treated with Methadone with last dose approximately x1 month ago. Admits to non-compliance due to tedious nature of medication management. - Pt historically treated wit h40mg Methadone BID - Initiate 20mg Methadone Q8hrs - Discussed adverse effects including constipation and QT prolongation with the patient in detail. She is aware and understanding of the risk associated with Methadone use. Patient and myself both agree benefit outweighs risk. Pt placed on constant telemetry with daily EKGs. Acute opiod withdrawal: Withdrawal symptoms improved with treatment above. - Last opiod use just prior to admission 04/12 Anxiety/Depression/Previous suicide attempt: Pt expresses anxiety and depression. - Denies SI or want to harm self currently - Would appreciate psychiatric attention - Psych consult placed IV drug use: Interested in sobriety. Provide information for different rehabilitation/support programs. Tobacco dependence: Provided >3 minutes of encouragement and education on quitting smoking. - Nicotine patch available if needed Tachycardia: Resolved. Suspect COVID-19: Covid-19 negative. Remove from isolation. Hepatitis C: As indicated on + Hep panel and elevated LFTs. Patient made aware of this. - Time Time Spent with patient: 25-34 minutes Smoking Cessation Education: 3 to 10 minutes Medications reviewed and adjusted accordingly: Yes Anticipated Discharge Disposition: Home, Self Care Anticipated Discharge Timeframe: Pending JOAO
[2020-04-15] MEDS ORDERED: NORMAL SALINE 10 ML SDV (AFTER EACH USE) IV PRN (20:30)
[2020-04-15] MEDS: NORMAL SALINE 10 ML SDV (SCHEDULED) IV SCH (22:03)
[2020-04-16] MEDS: METHADONE HCL 10 MG TABLET PO SCH ×3 (05:37→22:10)
[2020-04-16] MEDS: VANCOMYCIN HCL 1,250 MG in DEXTROSE 5%-WATER 250 ML IV SCH ×4 (05:41→23:15)
[2020-04-16] MEDS: LORAZEPAM 1 MG TABLET PO PRN ×2 (05:45→11:41)
[2020-04-16 06:29] LABS: HEMATOCRIT 31.4 % (36.0-47.0); HEMOGLOBIN 10.9 g/dL (12.0-15.5); MEAN CORPUSCULAR HEMOGLOBIN 28.4 pg (27.0-33.4); MEAN CORPUSCULAR HGB CONC 34.6 g/dL (32.0-36.0); MEAN CORPUSCULAR VOLUME 82 fl (80-97); PLATELET COUNT 316 10^3/uL (150-450); RED BLOOD COUNT 3.83 10^6/uL (3.72-5.28); RED CELL DISTRIBUTION WIDTH 13.6 % (11.5-14.0); WHITE BLOOD COUNT 9.2 10^3/uL (4.0-10.5)
[2020-04-16 06:52] LABS: VANCOMYCIN,TROUGH 19.4 ug/mL (5.0-20.0)
[2020-04-16 06:54] LABS: ANION GAP 9 (5-19); BLOOD UREA NITROGEN 6 mg/dL (7-20); CALCIUM 8.6 mg/dL (8.4-10.2); CARBON DIOXIDE 26 mmol/L (22-30); CHLORIDE 105 mmol/L (98-107); GLUCOSE 76 mg/dL (75-110); POTASSIUM 3.9 mmol/L (3.6-5.0)
[2020-04-16] MEDS: AZITHROMYCIN 500 MG in DEXTROSE 5%-WATER 250 ML IV SCH (09:32)
[2020-04-16] MEDS: FAMOTIDINE 20 MG TABLET PO SCH ×2 (09:33→22:14)
[2020-04-16] MEDS: PRAMIPEXOLE DI-HCL 0.5 MG TABLET PO SCH (09:33)
[2020-04-16] MEDS: SENNOSIDES/DOCUSATE 8.6-50 MG 1 EACH TABLET PO SCH (09:33)
[2020-04-16] MEDS: NORMAL SALINE 10 ML SDV (SCHEDULED) IV SCH ×2 (09:34→22:10)
[2020-04-16] MEDS: NICOTINE 14 MG/24 HR PATCH.TD24 TD SCH (09:34)
[2020-04-16] MEDS: ENOXAPARIN SODIUM INJ 40 MG/0.4 ML DISP.SYRIN SUBCUT SCH (09:34)
--- NOTE | 2020-04-16 15:33 | PDOC PROGRESS REPORT ---
Subjective Progress Note for:: 04/16/20 Subjective:: Patient is resting in bed. Reports lower back and right hip "muscle soreness". Onset day of admission with gradual progression in severity since. Denies change in gait, extremity weakness or tingling. Denies trauma or injury prior to onset. Rates soreness 1/. Well controlled with Tylenol. Her mother is present during exam, she is happy to be able to be with her daughter. No further concerns. No complaints per nursing. Reason For Visit: POSSIBLE INFECTIVE ENDOCARDITIS COVID-19 SUSPECT Physical Exam Vital Signs: Temp Pulse Resp BP Pulse Ox 97.6 F 87 20 124/75 99 04/16/20 12:14 04/16/20 12:14 04/16/20 12:14 04/16/20 12:14 04/16/20 12:14 Intake & Output 04/15/20 04/16/20 04/17/20 06:59 06:59 06:59 Intake Total 3100 3246 1230 Output Total 300 800 Balance 2800 2446 1230 Weight 84.2 kg 84.2 kg Additional comments: General appearance: PRESENT: no acute distress, cooperative, well-developed Head exam: PRESENT: atraumatic, normocephalic Eye exam: PRESENT: EOMI. ABSENT: scleral icterus Mouth exam: PRESENT: moist, tongue midline Neck exam: PRESENT: full ROM. ABSENT: JVD, tenderness Respiratory exam: PRESENT: clear to auscultation otilia, symmetrical, unlabored. ABSENT: chest wall tenderness, tachypnea, wheezes Cardiovascular exam: PRESENT: +S1, +S2, tachycardia. ABSENT: diastolic murmur, systolic murmur GI/Abdominal exam: PRESENT: normal bowel sounds, soft. ABSENT: ascites, distended, firm, tenderness Extremities exam: PRESENT: full ROM. ABSENT: clubbing, pedal edema, tenderness Musculoskeletal exam: PRESENT: ambulatory, full ROM. ABSENT: deformity, disloca tion Back exam: Mild paraspinal TTP bilaterally in thoracic and lumbar region. Full ROM all extremities. Full ROM thoracic and lumbar spine. Non-TTP spinus processes. Full ROM with gait. Sensation intact. Neurological exam: PRESENT: alert, awake, oriented to person, oriented to place, oriented to time, oriented to situation, CN II-XII grossly intact. ABSENT: altered, motor sensory deficit Psychiatric exam: ABSENT: Anxious. Skin exam: PRESENT: dry, intact, warm. ABSENT: erythema Results Laboratory Results: 04/16/20 05:35 04/16/20 05:35 04/16/20 04/16/20 05:35 05:35 WBC 9.2 RBC 3.83 Hgb 10.9 L Hct 31.4 L MCV 82 MCH 28.4 MCHC 34.6 RDW 13.6 Plt Count 316 Sodium 139.8 Potassium 3.9 Chloride 105 Carbon Dioxide 26 Anion Gap 9 BUN 6 L Creatinine 0.57 Est GFR ( Amer) > 60 Glucose 76 Calcium 8.6 04/12/20 21:30 Blood Blood Culture - Final Mrsa (Meth Resis Staph Aureus) 04/12/20 22:55 Blood Blood Culture (PCR) - Final Staphylococcus Aureus 04/12/20 22:55 Blood Blood Culture - Final Mrsa (Meth Resis Staph Aureus) 04/12/20 19:35 Troponin I < 0.012 Impressions: Chest X-Ray 04/12/20 15:09 IMPRESSION: FAINT DENSITY IN THE RIGHT UPPER LOBE SUSPICIOUS FOR PNEUMONIA. UNDERLYING MASS ALSO POSSIBLE. POSSIBLE DEVELOPING PNEUMONIA IN THE LEFT LUNG BASE WELL. Chest/Abdomen CTA 04/12/20 18:25 IMPRESSION: Substantially limited evaluation for pulmonary emboli secondary to inadequate contrast bolus timing. No large central filling defect identified. Multifocal consolidative opacity throughout both lungs, much of which appears nodular. Given the patient's age, this is most likely indicative of a multifocal atypical infectious/inflammatory process (to include septic emboli given the peripheral predominance). Follow-up to clearing is recommended. Diffusely heterogeneously attenuating liver parenchyma, especially about the right hepatic lobe, indeterminate. This could indicate geographic areas of hepatic steatosis. Recommend definitive assessment with multiphasic CT or MR of the abdomen. Left supraclavicular, mediastinal, and right hilar lymph node enlargement, presumably reactive. This can also be reassessed for resolution on follow-up imaging. TECHNICAL DOCUMENTATION: Quality ID # 436: Final reports with documentation of one or more dose reduction techniques (e.g., Automated exposure control, adjustment of the mA and/or kV according to patient size, use of iterative reconstruction technique) copyright 2011 [employer]- All Rights Reserved PICC Line Insertion 04/15/20 00:00 IMPRESSION: SUCCESSFUL PLACEMENT OF A 5 FR DUAL LUMEN 38 CM PICC IN THE LEFT BASILIC VEIN. Assessment and Plan - Diagnosis (1) Gram-positive cocci bacteremia Is this a current diagnosis for this admission?: Yes (2) Observation for suspected infectious endocarditis Is this a current diagnosis for this admission?: Yes (3) Pneumonia Qualifiers: Pneumonia type: due to unspecified organism Laterality: bilateral Lung location: unspecified part of lung Qualified Code(s): J18.9 - Pneumonia, unspecified organism Is this a current diagnosis for this admission?: Yes (5) Transaminitis Is this a current diagnosis for this admission?: Yes (6) IV drug user Is this a current diagnosis for this admission?: Yes (7) Opioid dependence Qualifiers: Substance use status: uncomplicated Qualified Code(s): F11.20 - Opioid dependence, uncomplicated Is this a current diagnosis for this admission?: Yes (8) Anxiety and depression Is this a current diagnosis for this admission?: Yes (9) Previous known suicide attempt Is this a current diagnosis for this admission?: Yes (10) Opioid withdrawal Is this a current diagnosis for this admission?: Yes (11) Tobacco dependence Is this a current diagnosis for this admission?: Yes (12) Suspected COVID-19 virus infection Is this a current diagnosis for this admission?: Yes (13) Back pain Qualifiers: Back pain location: low back pain Chronicity: acute Back pain laterality: bilateral Sciatica presence: without sciatica Qualified Code(s): M54.5 - Low back pain Is this a current diagnosis for this admission?: Yes - Plan Summary Summary: Back pain: Consistent with muscular pain, para-spinal TTP on exam. - Likely from laying in hospital bed for past several days. - Encouraged ambulating frequently - Provide KPad - Continue to monitor, consider imaging if no improvement Suspected Infectious Endocarditis: Possible R-sided endocarditis as supported by minor criterion. - TTE without vegitations - JOAO due to high clinical suspicion, scheduled for Saturday. - Tx: Continue Vanc (Therapy initiated 04/12) - Vanc dose as per pharmacy, monitor vanc trough - Monitor daily BMP while on vanc Pneumonia: CTA with evidence multifocal consolidative opacities possibly infectious/inflammatory versus septic emboli. - Cnt Vanc and Azithro therapy (Azithro for atypical coverage as per CT findings) - Azithro start date 04/13/2020 Gram positive cocci bacteremia: 04/12/2020 culture + wit MRSA x2 - Repeat cultures without growth in 48 - Tx as above Opiod dependence: Long standing hx opiod use. Previously treated with Methadone with last dose approximately x1 month ago. Admits to non-compliance due to tedious nature of medication management. - Pt historically treated wit h40mg Methadone BID - Continue 20mg Methadone Q8hrs - Again discussed risk of QT prolongation with patient. - EKG 04/15 and 04/16 with QTc 450. - Monitor with weekly EKGs. Acute opiod withdrawal: Withdrawal symptoms improved with treatment above. - Last opiod use just prior to admission 04/12 Anxiety/Depression/Previous suicide attempt: Pt expresses anxiety and depression. - Denies SI or want to harm self currently - Would appreciate psychiatric attention - Psych consult placed IV drug use: Interested in sobriety. Provide information for different rehabilitation/support programs. Tobacco dependence: Provided >3 minutes of encouragement and education on quitting smoking. - Nicotine patch available if needed Tachycardia: Resolved. Suspect COVID-19: Covid-19 negative. Remove from isolation. Hepatitis C: As indicated on + Hep panel and elevated LFTs. Patient made aware of this. - Time Time Spent with patient: 15-24 minutes Medications reviewed and adjusted accordingly: Yes Anticipated Discharge Disposition: Home, Self Care Anticipated Discharge Timeframe: Will determine after JOAO 04/18/2020
[2020-04-17] MEDS: LORAZEPAM 1 MG TABLET PO PRN ×4 (01:54→21:58)
[2020-04-17] MEDS: VANCOMYCIN HCL 1,250 MG in DEXTROSE 5%-WATER 250 ML IV SCH ×4 (05:22→23:28)
[2020-04-17] MEDS: METHADONE HCL 10 MG TABLET PO SCH ×3 (05:22→21:59)
[2020-04-17 05:54] LABS: HEMATOCRIT 32.1 % (36.0-47.0); HEMOGLOBIN 11.2 g/dL (12.0-15.5); MEAN CORPUSCULAR HEMOGLOBIN 28.7 pg (27.0-33.4); MEAN CORPUSCULAR HGB CONC 34.9 g/dL (32.0-36.0); MEAN CORPUSCULAR VOLUME 82 fl (80-97); PLATELET COUNT 355 10^3/uL (150-450); RED CELL DISTRIBUTION WIDTH 13.9 % (11.5-14.0)
[2020-04-17 06:18] LABS: ANION GAP 9 (5-19); BLOOD UREA NITROGEN 7 mg/dL (7-20); CALCIUM 8.7 mg/dL (8.4-10.2); CARBON DIOXIDE 27 mmol/L (22-30); CHLORIDE 105 mmol/L (98-107); GLUCOSE 77 mg/dL (75-110); POTASSIUM 4.1 mmol/L (3.6-5.0)
[2020-04-17] MEDS: NICOTINE 14 MG/24 HR PATCH.TD24 TD SCH (09:56)
[2020-04-17] MEDS: AZITHROMYCIN 500 MG in DEXTROSE 5%-WATER 250 ML IV SCH (09:56)
[2020-04-17] MEDS: PRAMIPEXOLE DI-HCL 0.5 MG TABLET PO SCH (09:57)
[2020-04-17] MEDS: FAMOTIDINE 20 MG TABLET PO SCH ×2 (09:57→21:58)
[2020-04-17] MEDS: SENNOSIDES/DOCUSATE 8.6-50 MG 1 EACH TABLET PO SCH (09:57)
[2020-04-17] MEDS: ENOXAPARIN SODIUM INJ 40 MG/0.4 ML DISP.SYRIN SUBCUT SCH (09:58)
[2020-04-17] MEDS: NORMAL SALINE 10 ML SDV (SCHEDULED) IV SCH ×2 (09:59→21:59)
--- NOTE | 2020-04-17 17:06 | PDOC PROGRESS REPORT ---
Subjective Progress Note for:: 04/17/20 Subjective:: Patient resting in bed. Overall doing well. Back pain has improved. SOB and CP have resolved. She understands that she has to be NPO p midnight for JOAO tomorrow. No further concerns or complaints. Discussed case with nurse. Voices concerns as all pt does is sleep. Discussed with patient, encouraged frequent walks at least 3x/day. Patient understanding of this and agreeable. Reason For Visit: POSSIBLE INFECTIVE ENDOCARDITIS COVID-19 SUSPECT Physical Exam Vital Signs: Temp Pulse Resp BP Pulse Ox 98.3 F 106 H 18 124/74 97 04/17/20 15:49 04/17/20 15:49 04/17/20 15:49 04/17/20 15:49 04/17/20 15:49 Intake & Output 04/16/20 04/17/20 04/18/20 06:59 06:59 06:59 Intake Total 3246 2220 1590 Output Total 800 2650 Balance 2446 -430 1590 Weight 84.2 kg 87.8 kg Additional comments: General appearance: PRESENT: no acute distress, cooperative, well-developed Head exam: PRESENT: atraumatic, normocephalic Eye exam: PRESENT: EOMI. ABSENT: scleral icterus Mouth exam: PRESENT: moist, tongue midline Neck exam: PRESENT: full ROM. ABSENT: JVD, tenderness Respiratory exam: PRESENT: clear to auscultation otilia, symmetrical, unlabored. ABSENT: chest wall tenderness, tachypnea, wheezes Cardiovascular exam: PRESENT: +S1, +S2, tachycardia. ABSENT: diastolic murmur, systolic murmur GI/Abdominal exam: PRESENT: normal bowel sounds, soft. ABSENT: ascites, distended, firm, tenderness Extremities exam: PRESENT: full ROM. ABSENT: clubbing, pedal edema, tenderness Musculoskeletal exam: PRESENT: ambulatory, full ROM. ABSENT: deformity, dislocation Neurological exam: PRESENT: alert, awake, oriented to person, oriented to place, oriented to time, oriented to situation, CN II-XII grossly intact. ABSENT: altered, motor sensory deficit Psychiatric exam: ABSENT: Anxious. Skin exam: PRESENT: dry, intact, warm. ABSENT: erythema Results Laboratory Results: 04/17/20 05:20 04/17/20 05:20 04/17/20 04/17/20 05:20 05:20 WBC 8.0 RBC 3.90 Hgb 11.2 L Hct 32.1 L MCV 82 MCH 28.7 MCHC 34.9 RDW 13.9 Plt Count 355 Sodium 141.1 Potassium 4.1 Chloride 105 Carbon Dioxide 27 Anion Gap 9 BUN 7 Creatinine 0.62 Est GFR ( Amer) > 60 Glucose 77 Calcium 8.7 Magnesium 2.2 04/12/20 19:35 Troponin I < 0.012 Impressions: Chest X-Ray 04/12/20 15:09 IMPRESSION: FAINT DENSITY IN THE RIGHT UPPER LOBE SUSPICIOUS FOR PNEUMONIA. UN DERLYING MASS ALSO POSSIBLE. POSSIBLE DEVELOPING PNEUMONIA IN THE LEFT LUNG BASE WELL. Chest/Abdomen CTA 04/12/20 18:25 IMPRESSION: Substantially limited evaluation for pulmonary emboli secondary to inadequate contrast bolus timing. No large central filling defect identified. Multifocal consolidative opacity throughout both lungs, much of which appears nodular. Given the patient's age, this is most likely indicative of a multifocal atypical infectious/inflammatory process (to include septic emboli given the peripheral predominance). Follow-up to clearing is recommended. Diffusely heterogeneously attenuating liver parenchyma, especially about the right hepatic lobe, indeterminate. This could indicate geographic areas of hepatic steatosis. Recommend definitive assessment with multiphasic CT or MR of the abdomen. Left supraclavicular, mediastinal, and right hilar lymph node enlargement, presumably reactive. This can also be reassessed for resolution on follow-up imaging. TECHNICAL DOCUMENTATION: Quality ID # 436: Final reports with documentation of one or more dose reduction techniques (e.g., Automated exposure control, adjustment of the mA and/or kV according to patient size, use of iterative reconstruction technique) copyright 2011 [employer]- All Rights Reserved PICC Line Insertion 04/15/20 00:00 IMPRESSION: SUCCESSFUL PLACEMENT OF A 5 FR DUAL LUMEN 38 CM PICC IN THE LEFT BASILIC VEIN. Assessment and Plan - Diagnosis (1) Gram-positive cocci bacteremia Is this a current diagnosis for this admission?: Yes (2) Observation for suspected infectious endocarditis Is this a current diagnosis for this admission?: Yes (3) Pneumonia Qualifiers: Pneumonia type: due to unspecified organism Laterality: bilateral Lung location: unspecified part of lung Qualified Code(s): J18.9 - Pneumonia, unspecified organism Is this a current diagnosis for this admission?: Yes (5) Transaminitis Is this a current diagnosis for this admission?: Yes (6) IV drug user Is this a current diagnosis for this admission?: Yes (7) Opioid dependence Qualifiers: Substance use status: uncomplicated Qualified Code(s): F11.20 - Opioid dependence, uncomplicated Is this a current diagnosis for this admission?: Yes (8) Anxiety and depression Is this a current diagnosis for this admission?: Yes (9) Previous known suicide attempt Is this a current diagnosis for this admission?: Yes (10) Opioid withdrawal Is this a current diagnosis for this admission?: Yes (11) Tobacco dependence Is this a current diagnosis for this admission?: Yes (12) Suspected COVID-19 virus infection Is this a current diagnosis for this admission?: Yes (13) Back pain Qualifiers: Back pain location: low back pain Chronicity: acute Back pain laterality: bilateral Sciatica presence: without sciatica Qualified Code(s): M54.5 - Low back pain Is this a current diagnosis for this admission?: Yes - Plan Summary Summary: Back pain: Consistent with muscular pain, para-spinal TTP on exam. - Likely from laying in hospital bed for past several days. Encouraged ambulating frequently. Provide KPad - Essentially resolved. Suspected Infectious Endocarditis: Possible R-sided endocarditis as supported by minor criterion. - TTE without vegitations - JOAO due to high clinical suspicion, scheduled for Saturday. - Tx: Continue Vanc (Therapy initiated 04/12) - Vanc dose as per pharmacy, monitor vanc trough - Monitor daily BMP while on vanc Pneumonia: CTA with evidence multifocal consolidative opacities possibly infectious/inflammatory versus septic emboli. - Cnt Vanc and Azithro therapy (Azithro for atypical coverage as per CT findings) - Azithro start date 04/13/2020 Gram positive cocci bacteremia: 04/12/2020 culture + wit MRSA x2 - Repeat cultures without growth in 48 - Tx as above Opiod dependence: Long standing hx opiod use. Previously treated with Methadone with last dose approximately x1 month ago. Admits to non-compliance due to tedious nature of medication management. - Pt historically treated wit h40mg Methadone BID - Continue 20mg Methadone Q8hrs - Again discussed risk of QT prolongation with patient. - EKG 04/15 and 04/16 with QTc 450. - Monitor with weekly EKGs. Acute opiod withdrawal: Withdrawal symptoms improved with treatment above. - Last opiod use just prior to admission 04/12 Anxiety/Depression/Previous suicide attempt: Pt expresses anxiety and depression. - Denies SI or want to harm self currently - Would appreciate psychiatric attention - Psych consult placed IV drug use: Interested in sobriety. Provide information for different rehabilitation/support programs. Tobacco dependence: Provided >3 minutes of encouragement and education on q uitting smoking. - Nicotine patch available if needed Tachycardia: Resolved. Suspect COVID-19: Covid-19 negative. Remove from isolation. Hepatitis C: As indicated on + Hep panel and elevated LFTs. Patient made aware o f this. - Time Time Spent with patient: 15-24 minutes Smoking Cessation Education: 3 to 10 minutes Medications reviewed and adjusted accordingly: Yes Anticipated Discharge Disposition: Home, Self Care Anticipated Discharge Timeframe: Pending JOAO
--- NOTE | 2020-04-17 18:03 | EKG REPORT ---
SEVERITY:- ABNORMAL ECG - SINUS RHYTHM PROBABLE LEFT VENTRICULAR HYPERTROPHY INFERIOR Q WAVES, PROBABLY NORMAL VARIATION : Confirmed by: Dudley Santiago MD 17-Apr-2020 18:03:22
--- NOTE | 2020-04-17 22:27 | PDOC CONSULTATION ---
Consultation-Blank Consultation: Behavioral Health Consultation Evaluation with patient from [phone]. Presenting Problem: Depression/Anxiety, Substance Abuse (Urine Drug Screen was positive for Opiates, Methamphetamine, and Cannabis) Clinical Presentation: Intravenous drug use Depression Anxiety Medication recommendations made by the psychiatric medication provider Dr. Hadley REYES., includes: Add Effexor 37.5MG twice a day for depression/energy/focus/to curb substance cravings Add Propranolol 10MG twice a day for anxiety/calming effect Impression/Plan: Patient is cleared from acute psychiatric services. Attending Nurse reported patient as been asking for her by mouth Ativan, sleeping most of the time, and was told to get up and walk as she keeps complaining her side is starting to hurt. 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 She stated patient has endocarditis and has upcoming testing to check how sever it is. Patient denied being linked to outpatient services currently. She reported she has been using drugs for about a year and denied previous substance abuse treatment. She commented "when I get out I am not going back to it." She denied suicidal and homicidal ideation. She admitted to one previous overdose about a year ago before they got custody of her niece. She reported family history of mental health as father with ODD and anger. Mood was euthymic with congruent affect. Thoughts were linear. No observed psychosis given good eye contact, appropriately answering questions and being engaged in evaluation. She teard up when talking about accidental overdoses and thinking of the people who care about her. Patient stated interested in medications and linkage to services. Best place would likely be [facility] (walk ins Mondays-Fridays 8:00AM04:30PM to initiate services. Behavioral Health can provide resource list when patient is ready for discharge. Could also make a Community Release Engineer Referral. Consulted with Dr. Faustin regarding the management and care of patient. Hospitalist made aware of recommendations.
[2020-04-18] MEDS: METHADONE HCL 10 MG TABLET PO SCH ×3 (06:00→21:06)
[2020-04-18] MEDS: VANCOMYCIN HCL 1,250 MG in DEXTROSE 5%-WATER 250 ML IV SCH ×5 (06:00→23:11)
[2020-04-18 06:33] LABS: HEMATOCRIT 33.6 % (36.0-47.0); HEMOGLOBIN 11.7 g/dL (12.0-15.5); MEAN CORPUSCULAR HEMOGLOBIN 28.8 pg (27.0-33.4); MEAN CORPUSCULAR HGB CONC 34.7 g/dL (32.0-36.0); MEAN CORPUSCULAR VOLUME 83 fl (80-97); PLATELET COUNT 403 10^3/uL (150-450); RED BLOOD COUNT 4.05 10^6/uL (3.72-5.28); RED CELL DISTRIBUTION WIDTH 14.1 % (11.5-14.0); WHITE BLOOD COUNT 7.8 10^3/uL (4.0-10.5)
[2020-04-18 07:01] LABS: ANION GAP 10 (5-19); BLOOD UREA NITROGEN 7 mg/dL (7-20); CALCIUM 9.3 mg/dL (8.4-10.2); CARBON DIOXIDE 29 mmol/L (22-30); CHLORIDE 100 mmol/L (98-107); GLUCOSE 79 mg/dL (75-110); POTASSIUM 4.6 mmol/L (3.6-5.0)
[2020-04-18] MEDS ORDERED: METHADONE HCL 10 MG TABLET PO ONE (08:30)
[2020-04-18] MEDS: SENNOSIDES/DOCUSATE 8.6-50 MG 1 EACH TABLET PO SCH (09:48)
[2020-04-18] MEDS: FAMOTIDINE 20 MG TABLET PO SCH ×2 (09:49→21:06)
[2020-04-18] MEDS: NORMAL SALINE 10 ML SDV (SCHEDULED) IV SCH ×2 (09:49→21:07)
[2020-04-18] MEDS: ENOXAPARIN SODIUM INJ 40 MG/0.4 ML DISP.SYRIN SUBCUT SCH (09:49)
[2020-04-18] MEDS: NICOTINE 14 MG/24 HR PATCH.TD24 TD SCH (09:49)
[2020-04-18] MEDS: LORAZEPAM 1 MG TABLET PO PRN ×2 (09:54→21:11)
[2020-04-18] MEDS ORDERED: LIDOCAINE 2% INJ-PF (20 MG/ML) 10 ML AMPUL ONE (11:56)
[2020-04-18] MEDS ORDERED: PROPOFOL INJ 200 MG/20 ML VIAL IV ONE (11:56)
[2020-04-18] MEDS ORDERED: DIPHENHYDRAMINE HCL 50 MG/ML VIAL IV PRN (12:11)
[2020-04-18] MEDS: PRAMIPEXOLE DI-HCL 0.5 MG TABLET PO SCH (12:56)
--- NOTE | 2020-04-18 13:39 | XCELERA REPORT ---
Study ID: [id number] [id number] Transesophageal Echocardiogram Report Name: CLAUDIO EPSTEIN Age: 25 yrs Gender: Female : 1995 Patient Status: Inpatient Patient Location: [address] [place] [address] Study Date: 04/18/2020 01:16 PM Reason For Study: Suspected infectiosu endocarditis Ordering Physician: KJ JUDD Interpretation Summary There is no evidence of a mass or vegetation. This does not rule out endocarditis. Left ventricular systolic function is normal. Ejection Fraction = >55%. The right ventricle is normal in size and function. There is trace mitral regurgitation. There is trace tricuspid regurgitation. There is no pericardial effusion. There is no evidence of a mass or vegetation. This does not rule out endocarditis. Left Ventricle The left ventricle is normal in size. There is normal left ventricular wall thickness. Left ventricular systolic function is normal. Ejection Fraction = >55%. Right Ventricle The right ventricle is normal in size and function. Atria The interatrial septum is intact with no evidence for an atrial septal defect. There is no Doppler evidence for an atrial septal defect. Mitral Valve The mitral valve is normal in structure and function. There is no vegetation seen on the mitral valve. There is no mitral valve stenosis. There is trace mitral regurgitation. Tricuspid Valve The tricuspid valve is normal in structure and function. There is no tricuspid valve vegetation. There is no tricuspid stenosis. There is trace tricuspid regurgitation. Aortic Valve The aortic valve is trileaflet. The aortic valve is normal in structure and function. The aortic valve opens well. No hemodynamically significant valvular aortic stenosis. No aortic regurgitation is present. Pulmonic Valve The pulmonic valve is not well visualized. There is no vegetation on the pulmonic valve. There is no pulmonic valvular regurgitation. Pericardium There is no pericardial effusion. : KJ JUDD Anil
--- NOTE | 2020-04-18 18:09 | PDOC PROGRESS REPORT ---
Subjective Date:: 04/18/20 Subjective:: Patient resting in bed, awakes easily when I enter the room. She has been NPO since midnight. Scheduled for JOAO today. Provides me with no complaints or concerns. No concerns per nursing. Reason For Visit: POSSIBLE INFECTIVE ENDOCARDITIS COVID-19 SUSPECT Physical Exam Vital Signs: Temp Pulse Resp BP Pulse Ox 97.8 F 99 16 118/52 L 99 04/18/20 12:27 04/18/20 14:00 04/18/20 12:42 04/18/20 12:42 04/18/20 12:42 Intake & Output 04/17/20 04/18/20 04/19/20 06:59 06:59 06:59 Intake Total 2220 2610 891 Output Total 2650 600 600 Balance -430 2009 Weight 87.8 kg 86.8 kg Additional comments: General appearance: PRESENT: no acute distress, cooperative, well-developed Head exam: PRESENT: atraumatic, normocephalic Eye exam: PRESENT: EOMI. ABSENT: scleral icterus Mouth exam: PRESENT: moist, tongue midline Neck exam: PRESENT: full ROM. ABSENT: JVD, tenderness Respiratory exam: PRESENT: clear to auscultation otilia, symmetrical, unlabored. ABSENT: chest wall tenderness, tachypnea, wheezes Cardiovascular exam: PRESENT: +S1, +S2, tachycardia. ABSENT: diastolic murmur, systolic murmur GI/Abdominal exam: PRESENT: normal bowel sounds, soft. ABSENT: ascites, distended, firm, tenderness Extremities exam: PRESENT: full ROM. ABSENT: clubbing, pedal edema, tenderness Musculoskeletal exam: PRESENT: ambulatory, full ROM. ABSENT: deformity, dislocation Neurological exam: PRESENT: alert, awake, oriented to person, oriented to place, oriented to time, oriented to situation, CN II-XII grossly intact. ABSENT: altered, motor sensory deficit Psychiatric exam: ABSENT: Anxious. Skin exam: PRESENT: dry, intact, warm. ABSENT: erythema Results Laboratory Results: 04/18/20 05:55 04/18/20 05:55 04/18/20 04/18/20 05:55 05:55 WBC 7.8 RBC 4.05 Hgb 11.7 L Hct 33.6 L MCV 83 MCH 28.8 MCHC 34.7 RDW 14.1 H Plt Count 403 Sodium 138.7 Potassium 4.6 Chloride 100 Carbon Dioxide 29 Anion Gap 10 BUN 7 Creatinine 0.64 Est GFR ( Amer) > 60 Glucose 79 Calcium 9.3 Magnesium 2.1 04/13/20 17:25 Blood Blood Culture - Final NO GROWTH IN 5 DAYS 04/13/20 17:37 Blood Blood Culture - Final NO GROWTH IN 5 DAYS 04/12/20 19:35 Troponin I < 0.012 Impressions: Chest X-Ray 04/12/20 15:09 IMPRESSION: FAINT DENSITY IN THE RIGHT UPPER LOBE SUSPICIOUS FOR PNEUMONIA. UNDERLYING MASS ALSO POSSIBLE. POSSIBLE DEVELOPING PNEUMONIA IN THE LEFT LUNG BASE WELL. Chest/Abdomen CTA 04/12/20 18:25 IMPRESSION: Substantially limited evaluation for pulmonary emboli secondary to inadequate contrast bolus timing. No large central filling defect identified. Multifocal consolidative opacity throughout both lungs, much of which appears nodular. Given the patient's age, this is most likely indicative of a multifocal atypical infectious/inflammatory process (to include septic emboli given the peripheral predominance). Follow-up to clearing is recommended. Diffusely heterogeneously attenuating liver parenchyma, especially about the right hepatic lobe, indeterminate. This could indicate geographic areas of hepatic steatosis. Recommend definitive assessment with multiphasic CT or MR of the abdomen. Left supraclavicular, mediastinal, and right hilar lymph node enlargement, presumably reactive. This can also be reassessed for resolution on follow-up imaging. TECHNICAL DOCUMENTATION: Quality ID # [id number]: Final reports with documentation of one or more dose reduction techniques (e.g., Automated exposure control, adjustment of the mA and/or kV according to patient size, use of iterative reconstruction technique) copyright 2011 [employer]- All Rights Reserved PICC Line Insertion 04/15/20 00:00 IMPRESSION: SUCCESSFUL PLACEMENT OF A 5 FR DUAL LUMEN 38 CM PICC IN THE LEFT BASILIC VEIN. Assessment and Plan - Diagnosis (1) Gram-positive cocci bacteremia Is this a current diagnosis for this admission?: Yes (2) Observation for suspected infectious endocarditis Is this a current diagnosis for this admission?: Yes (3) Pneumonia Qualifiers: Pneumonia type: due to unspecified organism Laterality: bilateral Lung location: unspecified part of lung Qualified Code(s): J18.9 - Pneumonia, unspecified organism Is this a current diagnosis for this admission?: Yes (5) Transaminitis Is this a current diagnosis for this admission?: Yes (6) IV drug user Is this a current diagnosis for this admission?: Yes (7) Opioid dependence Qualifiers: Substance use status: uncomplicated Qualified Code(s): F11.20 - Opioid dependence, uncomplicated Is this a current diagnosis for this admission?: Yes (8) Anxiety and depression Is this a current diagnosis for this admission?: Yes (9) Previous known suicide attempt Is this a current diagnosis for this admission?: Yes (10) Opioid withdrawal Is this a current diagnosis for this admission?: Yes (11) Tobacco dependence Is this a current diagnosis for this admission?: Yes (12) Suspected COVID-19 virus infection Is this a current diagnosis for this admission?: Yes (13) Back pain Qualifiers: Back pain location: low back pain Chronicity: acute Back pain laterality: bilateral Sciatica presence: without sciatica Qualified Code(s): M54.5 - Low back pain Is this a current diagnosis for this admission?: Yes - Plan Summary Summary: Gram positive cocci bacteremia: 04/12/2020 culture + wit MRSA x2 - Repeat cultures without growth. - Tx: Continue Vanc x2 weeks (Therapy initiated 04/12. Predicted end date 04/25.) - Vanc dose as per pharmacy, monitor vanc trough - Monitor BMP every other day while on vanc Suspected Infectious Endocarditis: Possible R-sided endocarditis as supported by minor criterion. - TTE without vegitations - JOAO without vegitations. Pneumonia: CTA with evidence multifocal consolidative opacities possibly infectious/inflammatory versus septic emboli. - Covered by Vanc, additionally treated with Azitho for atypical coverage as per CT. - Azithro therapy ended 04/17. Opiod dependence: Long standing hx opiod use. Previously treated with Methadone with last dose approximately x1 month ago. Admits to non-compliance due to tedious nature of medication management. - Pt historically treated with 40mg Methadone BID - Continue 20mg Methadone Q8hrs - Again discussed risk of QT prolongation with patient. - EKG 04/15 and 04/16 with QTc 450. - Monitor with weekly EKGs. Anxiety/Depression/Previous suicide attempt: Pt expresses anxiety and depression. With hx previous suicide attempt. - Initiate Effexor 37.5mg BID and Propranolol 10mg BID as per psych recommendations. Back pain: Resolved. Muscular type pain. Likely from laying in hospital bed for past several days. Encouraged ambulating frequently. Provide KPad Acute opiod withdrawal: Withdrawal symptoms improved with treatment above. Last opiod use just prior to admission 04/12. - Provide resources about local methadone clinics for pt prior to discharge to allow for continuum of care IV drug use: Interested in sobriety. Provide information for different rehabilitation/support programs. Hepatitis C: As indicated on + Hep panel and elevated LFTs. Patient made aware of this. Tobacco dependence: Provided >3 minutes of encouragement and education on quitting smoking. Nicotine patch available if needed Tachycardia: Resolved. Suspect COVID-19: Covid-19 negative. Remove from isolation. - Time Time Spent with patient: 15-24 minutes Smoking Cessation Education: 3 to 10 minutes Medications reviewed and adjusted accordingly: Yes Anticipated Discharge Disposition: Home, Self Care Anticipated Discharge Timeframe: 04/25/2020
[2020-04-18] MEDS: PROPRANOLOL HCL 10 MG TABLET PO SCH (21:06)
[2020-04-18] MEDS: VENLAFAXINE HCL 37.5 MG CAP.SR.24H PO SCH (21:06)
--- NOTE | 2020-04-18 22:45 | EKG REPORT ---
SEVERITY:- ABNORMAL ECG - SINUS TACHYCARDIA PROBABLE LEFT ATRIAL ABNORMALITY LEFT VENTRICULAR HYPERTROPHY INFERIOR Q WAVES, PROBABLY NORMAL VARIATION BORDERLINE PROLONGED QT INTERVAL : Confirmed by: Venessa Carnes 18-Apr-2020 22:45:24
[2020-04-19] MEDS: VANCOMYCIN HCL 1,250 MG in DEXTROSE 5%-WATER 250 ML IV SCH ×3 (06:19→17:55)
[2020-04-19] MEDS: METHADONE HCL 10 MG TABLET PO SCH ×3 (06:19→22:26)
[2020-04-19 06:57] LABS: HEMATOCRIT 35.3 % (36.0-47.0); HEMOGLOBIN 12.2 g/dL (12.0-15.5); MEAN CORPUSCULAR HEMOGLOBIN 28.5 pg (27.0-33.4); MEAN CORPUSCULAR HGB CONC 34.5 g/dL (32.0-36.0); MEAN CORPUSCULAR VOLUME 83 fl (80-97); PLATELET COUNT 428 10^3/uL (150-450); RED BLOOD COUNT 4.26 10^6/uL (3.72-5.28); WHITE BLOOD COUNT 7.7 10^3/uL (4.0-10.5)
[2020-04-19 07:22] LABS: ANION GAP 12 (5-19); BLOOD UREA NITROGEN 12 mg/dL (7-20); CALCIUM 9.4 mg/dL (8.4-10.2); CARBON DIOXIDE 28 mmol/L (22-30); CHLORIDE 94 mmol/L (98-107); GLUCOSE 215 mg/dL (75-110); POTASSIUM 4.6 mmol/L (3.6-5.0)
[2020-04-19] MEDS: VENLAFAXINE HCL 37.5 MG CAP.SR.24H PO SCH ×2 (09:25→22:26)
[2020-04-19] MEDS: SENNOSIDES/DOCUSATE 8.6-50 MG 1 EACH TABLET PO SCH (09:25)
[2020-04-19] MEDS: PROPRANOLOL HCL 10 MG TABLET PO SCH ×2 (09:25→22:26)
[2020-04-19] MEDS: FAMOTIDINE 20 MG TABLET PO SCH ×2 (09:25→22:26)
[2020-04-19] MEDS: NICOTINE 14 MG/24 HR PATCH.TD24 TD SCH (09:25)
[2020-04-19] MEDS: PRAMIPEXOLE DI-HCL 0.5 MG TABLET PO SCH (09:25)
[2020-04-19] MEDS: NORMAL SALINE 10 ML SDV (SCHEDULED) IV SCH ×2 (09:32→22:26)
[2020-04-19] MEDS: ENOXAPARIN SODIUM INJ 40 MG/0.4 ML DISP.SYRIN SUBCUT SCH (09:34)
--- NOTE | 2020-04-19 11:22 | PDOC PROGRESS REPORT ---
Subjective Date:: 04/19/20 Subjective:: Patient was under the impression she was going home today. During signout I con firmed with the previous provider that she needs another week of IV antibiotics. Reason For Visit: POSSIBLE INFECTIVE ENDOCARDITIS COVID-19 SUSPECT Physical Exam Vital Signs: Temp Pulse Resp BP Pulse Ox 97.8 F 95 16 109/73 93 04/19/20 08:03 04/19/20 08:03 04/19/20 08:03 04/19/20 08:03 04/19/20 08:03 Intake & Output 04/18/20 04/19/20 04/20/20 06:59 06:59 06:59 Intake Total 2610 2061 Output Total 600 600 Balance 2009 1461 Weight 86.8 kg 85.9 kg General appearance: PRESENT: cooperative, well-developed Mouth exam: PRESENT: moist, tongue midline Respiratory exam: PRESENT: symmetrical, unlabored. ABSENT: rales, rhonchi, tachypnea, wheezes Cardiovascular exam: PRESENT: RRR, +S1, +S2, systolic murmur - 3/6. ABSENT: bradycardia, diastolic murmur, irregular rhythm, tachycardia GI/Abdominal exam: PRESENT: normal bowel sounds, soft. ABSENT: tenderness Extremities exam: ABSENT: pedal edema Results Laboratory Results: 04/19/20 06:30 04/19/20 06:30 04/19/20 04/19/20 06:30 06:30 WBC 7.7 RBC 4.26 Hgb 12.2 Hct 35.3 L MCV 83 MCH 28.5 MCHC 34.5 RDW 14.0 Plt Count 428 Sodium 133.9 L Potassium 4.6 Chloride 94 L Carbon Dioxide 28 Anion Gap 12 BUN 12 Creatinine 0.82 Est GFR ( Amer) > 60 Glucose 215 H Calcium 9.4 Magnesium 2.1 04/14/20 10:54 Blood Blood Culture - Final NO GROWTH IN 5 DAYS 04/14/20 10:13 Blood Blood Culture - Final NO GROWTH IN 5 DAYS 04/13/20 17:25 Blood Blood Culture - Final NO GROWTH IN 5 DAYS 04/13/20 17:37 Blood Blood Culture - Final NO GROWTH IN 5 DAYS 04/12/20 19:35 Troponin I < 0.012 Impressions: Chest X-Ray 04/12/20 15:09 IMPRESSION: FAINT DENSITY IN THE RIGHT UPPER LOBE SUSPICIOUS FOR PNEUMONIA. UNDERLYING MASS ALSO POSSIBLE. POSSIBLE DEVELOPING PNEUMONIA IN THE LEFT LUNG BASE WELL. Chest/Abdomen CTA 04/12/20 18:25 IMPRESSION: Substantially limited evaluation for pulmonary emboli secondary to inadequate contrast bolus timing. No large central filling defect identified. Multifocal consolidative opacity throughout both lungs, much of which appears nodular. Given the patient's age, this is most likely indicative of a multifocal atypical infectious/inflammatory process (to include septic emboli given the peripheral predominance). Follow-up to clearing is recommended. Diffusely heterogeneously attenuating liver parenchyma, especially about the right hepatic lobe, indeterminate. This could indicate geographic areas of hepatic steatosis. Recommend definitive assessment with multiphasic CT or MR of the abdomen. Left supraclavicular, mediastinal, and right hilar lymph node enlargement, presumably reactive. This can also be reassessed for resolution on follow-up imaging. TECHNICAL DOCUMENTATION: Quality ID # [id number]: Final reports with documentation of one or more dose reduction techniques (e.g., Automated exposure control, adjustment of the mA and/or kV according to patient size, use of iterative reconstruction technique) copyright 2011 [employer]- All Rights Reserved PICC Line Insertion 04/15/20 00:00 IMPRESSION: SUCCESSFUL PLACEMENT OF A 5 FR DUAL LUMEN 38 CM PICC IN THE LEFT BASILIC VEIN. Assessment and Plan - Diagnosis (1) Septic pulmonary embolism Qualifiers: Chronicity: acute Acute cor pulmonale presence: without acute cor pulmonale Qualified Code(s): I26.90 - Septic pulmonary embolism without acute cor pulmonale Is this a current diagnosis for this admission?: Yes (2) Bacteremia due to methicillin resistant Staphylococcus aureus Is this a current diagnosis for this admission?: Yes (3) Observation for suspected infectious endocarditis Is this a current diagnosis for this admission?: Yes (4) Pneumonia Qualifiers: Pneumonia type: due to methicillin-resistant Staphylococcus aureus (MRSA) Laterality: bilateral Lung location: unspecified part of lung Qualified Code(s): J15.212 - Pneumonia due to Methicillin resistant Staphylococcus aureus Is this a current diagnosis for this admission?: Yes (5) Transaminitis Is this a current diagnosis for this admission?: Yes (6) IV drug user Is this a current diagnosis for this admission?: Yes (7) Opioid dependence Qualifiers: Substance use status: uncomplicated Qualified Code(s): F11.20 - Opioid dependence, uncomplicated Is this a current diagnosis for this admission?: Yes (8) Anxiety and depression Is this a current diagnosis for this admission?: Yes (9) Previous known suicide attempt Is this a current diagnosis for this admission?: Yes (10) Opioid withdrawal Is this a current diagnosis for this admission?: Yes (11) Tobacco dependence Is this a current diagnosis for this admission?: Yes (12) Suspected COVID-19 virus infection Is this a current diagnosis for this admission?: Yes (13) Back pain Qualifiers: Back pain location: low back pain Chronicity: acute Back pain laterality: bilateral Sciatica presence: without sciatica Qualified Code(s): M54.5 - Low back pain Is this a current diagnosis for this admission?: Yes (14) Hepatitis C infection Qualifiers: Viral hepatitis chronicity: acute Hepatic coma status: without hepatic coma Qualified Code(s): B17.10 - Acute hepatitis C without hepatic coma Is this a current diagnosis for this admission?: Yes - Plan Summary Summary: Gram positive cocci bacteremia: 04/12/2020 culture + wit MRSA x2 - Repeat cultures without growth. - Tx: Continue Vanc x2 weeks (Therapy initiated 04/12. Predicted end date 04/25.) - Vanc dose as per pharmacy, monitor vanc trough - Monitor BMP every other day while on vanc Suspected Infectious Endocarditis: Possible R-sided endocarditis as supported by minor criterion. - TTE without vegitations Pneumonia: CTA with evidence multifocal consolidative opacities possibly infectious/inflammatory versus septic emboli. - Covered by Vanc, additionally treated with Azitho for atypical coverage as per CT. - Azithro therapy ended 04/17. Opiod dependence: Long standing hx opiod use. Previously treated with Methadone with last dose approximately x1 month ago. Admits to non-compliance due to te dious nature of medication management. - Pt historically treated with 40mg Methadone BID - Continue 20mg Methadone Q8hrs - Again discussed risk of QT prolongation with patient. - EKG 04/15 and 04/16 with QTc 450. - Monitor with weekly EKGs. Anxiety/Depression/Previous suicide attempt: Pt expresses anxiety and depression. With hx previous suicide attempt. - Initiate Effexor 37.5mg BID and Propranolol 10mg BID as per psych recomm endations. Back pain: Resolved. Muscular type pain. Likely from laying in hospital bed for past several days. Encouraged ambulating frequently. Provide KPad Acute opiod withdrawal: Withdrawal symptoms improved with treatment above. Last opiod use just prior to admission 04/12. - Provide resources about local methadone clinics for pt prior to discharge to allow for continuum of care IV drug use: Interested in sobriety. Provide information for different rehabilitation/support programs. Hepatitis C: As indicated on + Hep panel and elevated LFTs. Patient made aware of this. Tobacco dependence: Provided >3 minutes of encouragement and education on quitting smoking. Nicotine patch available if needed Tachycardia: Resolved. Suspect COVID-19: Covid-19 negative. Remove from isolation. Methicillin-resistant staph aureus bacteremia: Confirmed by blood cultures. Vancomycin as above. Bilateral septic emboli: Multiple cavitary lesions noted on imaging. Patient still with hemoptysis. Will repeat CT scan of the chest to investigate possibility of empyema. - Time Time Spent with patient: 15-24 minutes Medications reviewed and adjusted accordingly: Yes Anticipated Discharge Disposition: Home, Self Care Anticipated Discharge Timeframe: Unknown
[2020-04-20] MEDS: METHADONE HCL 10 MG TABLET PO SCH ×3 (06:19→21:38)
[2020-04-20] MEDS: VANCOMYCIN HCL 1,250 MG in DEXTROSE 5%-WATER 250 ML IV SCH ×5 (06:20→21:38)
[2020-04-20] MEDS: LORAZEPAM 1 MG TABLET PO PRN ×3 (06:20→21:41)
[2020-04-20 07:36] LABS: HEMATOCRIT 33.6 % (36.0-47.0); HEMOGLOBIN 11.3 g/dL (12.0-15.5); MEAN CORPUSCULAR HEMOGLOBIN 28.2 pg (27.0-33.4); MEAN CORPUSCULAR HGB CONC 33.6 g/dL (32.0-36.0); MEAN CORPUSCULAR VOLUME 84 fl (80-97); PLATELET COUNT 424 10^3/uL (150-450); RED BLOOD COUNT 3.99 10^6/uL (3.72-5.28); RED CELL DISTRIBUTION WIDTH 13.6 % (11.5-14.0); WHITE BLOOD COUNT 6.9 10^3/uL (4.0-10.5)
[2020-04-20 07:58] LABS: ANION GAP 13 (5-19); BLOOD UREA NITROGEN 13 mg/dL (7-20); CALCIUM 9.2 mg/dL (8.4-10.2); CARBON DIOXIDE 25 mmol/L (22-30); CHLORIDE 94 mmol/L (98-107); GLUCOSE 291 mg/dL (75-110); POTASSIUM 4.6 mmol/L (3.6-5.0)
[2020-04-20] MEDS ORDERED: INFLUENZA QUAD (6MOS+) 2020-21 VAC 0.5 ML SYR IM ONE (08:00)
[2020-04-20] MEDS: PRAMIPEXOLE DI-HCL 0.5 MG TABLET PO SCH (09:36)
[2020-04-20] MEDS: PROPRANOLOL HCL 10 MG TABLET PO SCH ×2 (09:36→21:39)
[2020-04-20] MEDS: VENLAFAXINE HCL 37.5 MG CAP.SR.24H PO SCH ×2 (09:36→21:41)
[2020-04-20] MEDS: SENNOSIDES/DOCUSATE 8.6-50 MG 1 EACH TABLET PO SCH (09:37)
[2020-04-20] MEDS: FAMOTIDINE 20 MG TABLET PO SCH ×2 (09:37→21:41)
[2020-04-20] MEDS: ENOXAPARIN SODIUM INJ 40 MG/0.4 ML DISP.SYRIN SUBCUT SCH (09:37)
[2020-04-20] MEDS: NORMAL SALINE 10 ML SDV (SCHEDULED) IV SCH ×2 (09:38→21:42)
[2020-04-20] MEDS: NICOTINE 14 MG/24 HR PATCH.TD24 TD SCH (09:40)
--- NOTE | 2020-04-20 13:34 | PDOC PROGRESS REPORT ---
Subjective Date:: 04/20/20 Subjective:: Resting comfortably eating lunch. No complaints. Reason For Visit: POSSIBLE INFECTIVE ENDOCARDITIS COVID-19 SUSPECT Physical Exam Vital Signs: Temp Pulse Resp BP Pulse Ox 98.0 F 87 16 107/57 L 99 04/20/20 12:00 04/20/20 12:00 04/20/20 12:00 04/20/20 12:00 04/20/20 12:00 Intake & Output 04/19/20 04/20/20 04/21/20 06:59 06:59 06:59 Intake Total 2061 2544 250 Output Total 600 1600 Balance 1461 944 250 Weight 85.9 kg 84.9 kg General appearance: PRESENT: no acute distress, cooperative, well-developed Head exam: PRESENT: atraumatic, normocephalic Respiratory exam: PRESENT: clear to auscultation otilia, symmetrical, unlabored. ABSENT: rales, rhonchi, tachypnea, wheezes Cardiovascular exam: PRESENT: RRR, +S1, +S2. ABSENT: bradycardia, diastolic murmur, irregular rhythm, systolic murmur, tachycardia GI/Abdominal exam: PRESENT: normal bowel sounds, soft. ABSENT: distended, guarding, tenderness Rectal exam: PRESENT: deferred Gentrourinary exam: ABSENT: indwelling catheter Extremities exam: PRESENT: full ROM. ABSENT: pedal edema Musculoskeletal exam: PRESENT: ambulatory, normal inspection. ABSENT: deformity, dislocation Neurological exam: PRESENT: alert, awake, oriented to person, oriented to place, oriented to time, oriented to situation, CN II-XII grossly intact. ABSENT: altered Psychiatric exam: PRESENT: appropriate affect. ABSENT: agitated, anxious Focused psych exam: ABSENT: delusional, paranoid, restlessness Skin exam: PRESENT: dry, normal color, warm. ABSENT: rash Results Laboratory Results: 04/20/20 06:30 04/20/20 06:30 04/20/20 04/20/20 06:30 06:30 WBC 6.9 RBC 3.99 Hgb 11.3 L Hct 33.6 L MCV 84 MCH 28.2 MCHC 33.6 RDW 13.6 Plt Count 424 Sodium 131.9 L Potassium 4.6 Chloride 94 L Carbon Dioxide 25 Anion Gap 13 BUN 13 Creatinine 0.72 Est GFR ( Amer) > 60 Glucose 291 H Calcium 9.2 04/14/20 10:54 Blood Blood Culture - Final NO GROWTH IN 5 DAYS 04/14/20 10:13 Blood Blood Culture - Final NO GROWTH IN 5 DAYS 04/12/20 19:35 Troponin I < 0.012 Impressions: Chest X-Ray 04/12/20 15:09 IMPRESSION: FAINT DENSITY IN THE RIGHT UPPER LOBE SUSPICIOUS FOR PNEUMONIA. UNDERLYING MASS ALSO POSSIBLE. POSSIBLE DEVELOPING PNEUMONIA IN THE LEFT LUNG BASE WELL. Chest/Abdomen CTA 04/12/20 18:25 IMPRESSION: Substantially limited evaluation for pulmonary emboli secondary to inadequate contrast bolus timing. No large central filling defect identified. Multifocal consolidative opacity throughout both lungs, much of which appears nodular. Given the patient's age, this is most likely indicative of a multifocal atypical infectious/inflammatory process (to include septic emboli given the peripheral predominance). Follow-up to clearing is recommended. Diffusely heterogeneously attenuating liver parenchyma, especially about the right hepatic lobe, indeterminate. This could indicate geographic areas of hepatic steatosis. Recommend definitive assessment with multiphasic CT or MR of the abdomen. Left supraclavicular, mediastinal, and right hilar lymph node enlargement, presumably reactive. This can also be reassessed for resolution on follow-up imaging. TECHNICAL DOCUMENTATION: Quality ID # [id number]: Final reports with documentation of one or more dose reduction techniques (e.g., Automated exposure control, adjustment of the mA and/or kV according to patient size, use of iterative reconstruction technique) copyright 2011 [employer]- All Rights Reserved PICC Line Insertion 04/15/20 00:00 IMPRESSION: SUCCESSFUL PLACEMENT OF A 5 FR DUAL LUMEN 38 CM PICC IN THE LEFT BASILIC VEIN. Assessment and Plan - Diagnosis (1) Bacteremia due to methicillin resistant Staphylococcus aureus Is this a current diagnosis for this admission?: Yes (2) Observation for suspected infectious endocarditis Is this a current diagnosis for this admission?: Yes (3) Pneumonia Qualifiers: Pneumonia type: due to methicillin-resistant Staphylococcus aureus (MRSA) Laterality: bilateral Lung location: unspecified part of lung Qualified Code(s): J15.212 - Pneumonia due to Methicillin resistant Staphylococcus aureus Is this a current diagnosis for this admission?: Yes (4) Transaminitis Is this a current diagnosis for this admission?: Yes (5) IV drug user Is this a current diagnosis for this admission?: Yes (6) Opioid dependence Qualifiers: Substance use status: uncomplicated Qualified Code(s): F11.20 - Opioid dependence, uncomplicated Is this a current diagnosis for this admission?: Yes (7) Anxiety and depression Is this a current diagnosis for this admission?: Yes (8) Previous known suicide attempt Is this a current diagnosis for this admission?: Yes (9) Opioid withdrawal Is this a current diagnosis for this admission?: Yes (10) Tobacco dependence Is this a current diagnosis for this admission?: Yes (11) Suspected COVID-19 virus infection Is this a current diagnosis for this admission?: Yes (12) Back pain Qualifiers: Back pain location: low back pain Chronicity: acute Back pain laterality: bilateral Sciatica presence: without sciatica Qualified Code(s): M54.5 - Low back pain Is this a current diagnosis for this admission?: Yes (13) Hepatitis C infection Qualifiers: Viral hepatitis chronicity: acute Hepatic coma status: without hepatic coma Qualified Code(s): B17.10 - Acute hepatitis C without hepatic coma Is this a current diagnosis for this admission?: Yes - Plan Summary Summary: Gram positive cocci bacteremia: 04/12/2020 culture + wit MRSA x2 - Repeat cultures without growth. - Tx: Continue Vanc x2 weeks (Therapy initiated 04/12. Predicted end date 04/25.) - Vanc dose as per pharmacy, monitor vanc trough - Monitor BMP every other day while on vanc Suspected Infectious Endocarditis: Possible R-sided endocarditis as supported by minor criterion. - TTE without vegitations Pneumonia: CTA with evidence multifocal consolidative opacities possibly infectious/inflammatory versus septic emboli. - Covered by Vanc, additionally treated with Azitho for atypical coverage as per CT. - Azithro therapy ended 04/17. Opiod dependence: Long standing hx opiod use. Previously treated with Methadone with last dose approximately x1 month ago. Admits to non-compliance due to t edious nature of medication management. - Pt historically treated with 40mg Methadone BID - Continue 20mg Methadone Q8hrs - Again discussed risk of QT prolongation with patient. - EKG 04/15 and 04/16 with QTc 450. - Monitor with weekly EKGs. Anxiety/Depression/Previous suicide attempt: Pt expresses anxiety and depression. With hx previous suicide attempt. - Initiate Effexor 37.5mg BID and Propranolol 10mg BID as per psych recom mendations. Back pain: Resolved. Muscular type pain. Likely from laying in hospital bed for past several days. Encouraged ambulating frequently. Provide KPad Acute opiod withdrawal: Withdrawal symptoms improved with treatment above. Last opiod use just prior to admission 04/12. - Provide resources about local methadone clinics for pt prior to discharge to allow for continuum of care IV drug use: Interested in sobriety. Provide information for different rehabilitation/support programs. Hepatitis C: As indicated on + Hep panel and elevated LFTs. Patient made aware of this. Tobacco dependence: Provided >3 minutes of encouragement and education on quitting smoking. Nicotine patch available if needed Tachycardia: Resolved. Suspect COVID-19: Covid-19 negative. Remove from isolation. Methicillin-resistant staph aureus bacteremia: Confirmed by blood cultures. Vancomycin as above. Bilateral septic emboli: Multiple cavitary lesions noted on imaging. Patient still with hemoptysis. Will repeat CT scan of the chest to investigate possibility of empyema. 04/19/2020 Correction Patient does not have septic emboli. 04/20/2020 Methicillin-resistant staph aureus bacteremia without endocarditis-continue vancomycin through scheduled end of treatment which I believe is April 26. The patient had a vancomycin level greater than 100 and a glucose of over 200. This was an error as the blood was drawn while the vancomycin was running. Repeat vancomycin level was 30. Pharmacy is adjusting the dose. We will continue other medications as above. The patient was in much better spirits today than yesterday. - Time Time Spent with patient: Less than 15 minutes Medications reviewed and adjusted accordingly: Yes Anticipated Discharge Disposition: Home, Self Care Anticipated Discharge Timeframe: April 26, 2020
[2020-04-20 14:14] LABS: VANCOMYCIN,TROUGH 30.8 ug/mL (5.0-20.0)
[2020-04-21] MEDS: METHADONE HCL 10 MG TABLET PO SCH ×2 (05:42→14:43)
[2020-04-21] MEDS: VANCOMYCIN HCL 1,250 MG in DEXTROSE 5%-WATER 250 ML IV SCH ×2 (05:43→14:43)
[2020-04-21] MEDS: LORAZEPAM 1 MG TABLET PO PRN ×2 (05:48→10:28)
--- NOTE | 2020-04-21 10:24 | PDOC PROGRESS REPORT ---
Subjective Date:: 04/21/20 Subjective:: Patient just took a shower earlier today. She is resting comfortably in bed. S he notes that her breathing is more comfortable. Reason For Visit: POSSIBLE INFECTIVE ENDOCARDITIS COVID-19 SUSPECT Physical Exam Vital Signs: Temp Pulse Resp BP Pulse Ox 98.6 F 87 18 99/65 L 97 04/21/20 08:30 04/21/20 07:52 04/21/20 07:52 04/21/20 07:52 04/21/20 07:52 Intake & Output 04/20/20 04/21/20 04/22/20 06:59 06:59 06:59 Intake Total 2544 1050 Output Total 1600 Balance 944 1050 Weight 84.9 kg 85.9 kg General appearance: PRESENT: no acute distress, cooperative, well-developed Head exam: PRESENT: atraumatic, normocephalic Respiratory exam: PRESENT: clear to auscultation otilia, symmetrical, unlabored. ABSENT: rales, rhonchi, tachypnea, wheezes Cardiovascular exam: PRESENT: +S1, +S2, systolic murmur. ABSENT: bradycardia, diastolic murmur, irregular rhythm, tachycardia - At left sternal border GI/Abdominal exam: PRESENT: normal bowel sounds, soft. ABSENT: distended, guarding, tenderness Rectal exam: PRESENT: deferred Gentrourinary exam: ABSENT: indwelling catheter Extremities exam: PRESENT: other - PICC line right upper extremity. ABSENT: pedal edema Musculoskeletal exam: PRESENT: ambulatory, normal inspection. ABSENT: deformity, dislocation Neurological exam: PRESENT: alert, awake, oriented to person, oriented to place, oriented to time, oriented to situation, CN II-XII grossly intact. ABSENT: altered Psychiatric exam: PRESENT: appropriate affect. ABSENT: agitated, anxious Results Laboratory Results: 04/20/20 06:30 04/20/20 06:30 04/12/20 19:35 Troponin I < 0.012 Impressions: Chest X-Ray 04/12/20 15:09 IMPRESSION: FAINT DENSITY IN THE RIGHT UPPER LOBE SUSPICIOUS FOR PNEUMONIA. UNDERLYING MASS ALSO POSSIBLE. POSSIBLE DEVELOPING PNEUMONIA IN THE LEFT LUNG BASE WELL. Chest/Abdomen CTA 04/12/20 18:25 IMPRESSION: Substantially limited evaluation for pulmonary emboli secondary to inadequate contrast bolus timing. No large central filling defect identified. Multifocal consolidative opacity throughout both lungs, much of which appears nodular. Given the patient's age, this is most likely indicative of a multifocal atypical infectious/inflammatory process (to include septic emboli given the peripheral predominance). Follow-up to clearing is recommended. Diffusely heterogeneously attenuating liver parenchyma, especially about the right hepatic lobe, indeterminate. This could indicate geographic areas of hepatic steatosis. Recommend definitive assessment with multiphasic CT or MR of the abdomen. Left supraclavicular, mediastinal, and right hilar lymph node enlargement, presumably reactive. This can also be reassessed for resolution on follow-up imaging. TECHNICAL DOCUMENTATION: Quality ID # [id number]: Final reports with documentation of one or more dose reduction techniques (e.g., Automated exposure control, adjustment of the mA and/or kV according to patient size, use of iterative reconstruction technique) copyright 2011 [employer]- All Rights Reserved PICC Line Insertion 04/15/20 00:00 IMPRESSION: SUCCESSFUL PLACEMENT OF A 5 FR DUAL LUMEN 38 CM PICC IN THE LEFT BASILIC VEIN. Assessment and Plan - Diagnosis (1) Bacteremia due to methicillin resistant Staphylococcus aureus Is this a current diagnosis for this admission?: Yes (2) Observation for suspected infectious endocarditis Is this a current diagnosis for this admission?: Yes (3) Pneumonia Qualifiers: Pneumonia type: due to methicillin-resistant Staphylococcus aureus (MRSA) Laterality: bilateral Lung location: unspecified part of lung Qualified Code(s): J15.212 - Pneumonia due to Methicillin resistant Staphylococcus aureus Is this a current diagnosis for this admission?: Yes (4) Transaminitis Is this a current diagnosis for this admission?: Yes (5) IV drug user Is this a current diagnosis for this admission?: Yes (6) Opioid dependence Qualifiers: Substance use status: uncomplicated Qualified Code(s): F11.20 - Opioid dependence, uncomplicated Is this a current diagnosis for this admission?: Yes (7) Anxiety and depression Is this a current diagnosis for this admission?: Yes (8) Previous known suicide attempt Is this a current diagnosis for this admission?: Yes (9) Opioid withdrawal Is this a current diagnosis for this admission?: Yes (10) Tobacco dependence Is this a current diagnosis for this admission?: Yes (11) Suspected COVID-19 virus infection Is this a current diagnosis for this admission?: Yes (12) Back pain Qualifiers: Back pain location: low back pain Chronicity: acute Back pain laterality: bilateral Sciatica presence: without sciatica Qualified Code(s): M54.5 - Low back pain Is this a current diagnosis for this admission?: Yes (13) Hepatitis C infection Qualifiers: Viral hepatitis chronicity: acute Hepatic coma status: without hepatic coma Qualified Code(s): B17.10 - Acute hepatitis C without hepatic coma Is this a current diagnosis for this admission?: Yes - Plan Summary Summary: Gram positive cocci bacteremia: 04/12/2020 culture + wit MRSA x2 - Repeat cultures without growth. - Tx: Continue Vanc x2 weeks (Therapy initiated 04/12. Predicted end date 04/25.) - Vanc dose as per pharmacy, monitor vanc trough - Monitor BMP every other day while on vanc 04/21/2020-blood culture since initial cultures have been no growth. Vancomycin level reported yesterday was in error. Recheck labs tomorrow. Suspected Infectious Endocarditis: Possible R-sided endocarditis as supported by minor criterion. - TTE without vegitations Pneumonia: CTA with evidence multifocal consolidative opacities possibly infectious/inflammatory versus septic emboli. - Covered by Vanc, additionally treated with Azitho for atypical coverage as per CT. - Azithro therapy ended 04/17. 04/21/2020-patient reports breathing is noticeably improved Opiod dependence: Long standing hx opiod use. Previously treated with Methadone with last dose approximately x1 month ago. Admits to non-compliance due to tedious nature of medication management. - Pt historically treated with 40mg Methadone BID - Continue 20mg Methadone Q8hrs - Again discussed risk of QT prolongation with patient. - EKG 04/15 and 04/16 with QTc 450. - Monitor with weekly EKGs. Anxiety/Depression/Previous suicide attempt: Pt expresses anxiety and depression. With hx previous suicide attempt. - Initiate Effexor 37.5mg BID and Propranolol 10mg BID as per psych recommendations. Back pain: Resolved. Muscular type pain. Likely from laying in hospital bed for past several days. Encouraged ambulating frequently. Provide KPad Acute opiod withdrawal: Withdrawal symptoms improved with treatment above. Last opiod use just prior to admission 04/12. - Provide resources about local methadone clinics for pt prior to discharge to allow for continuum of care IV drug use: Interested in sobriety. Provide information for different rehabilitation/support programs. Hepatitis C: As indicated on + Hep panel and elevated LFTs. Patient made aware of this. Tobacco dependence: Provided >3 minutes of encouragement and education on quitting smoking. Nicotine patch available if needed Tachycardia: Resolved. Suspect COVID-19: Covid-19 negative. Remove from isolation. Methicillin-resistant staph aureus bacteremia: Confirmed by blood cultures. Vancomycin as above. Bilateral septic emboli: Multiple cavitary lesions noted on imaging. Patient still with hemoptysis. Will repeat CT scan of the chest to investigate possibility of empyema. 04/19/2020 Correction Patient does not have septic emboli. 04/20/2020 Methicillin-resistant staph aureus bacteremia without endocarditis-continue vancomycin through scheduled end of treatment which I believe is April 26. The patient had a vancomycin level greater than 100 and a glucose of over 200. This was an error as the blood was drawn while the vancomycin was running. Repeat vancomycin level was 30. Pharmacy is adjusting the dose. We will continue other medications as above. The patient was in much better spirits today than yesterday. 04/21/2020 Doing well. Endocarditis ruled out. Vancomycin through April 26. No new changes in treatment plan. Recheck laboratory studies tomorrow. - Time Time Spent with patient: 15-24 minutes Medications reviewed and adjusted accordingly: Yes Anticipated Discharge Disposition: Home, Self Care Anticipated Discharge Timeframe: 04/26/2020
[2020-04-21] MEDS: NICOTINE 14 MG/24 HR PATCH.TD24 TD SCH (10:26)
[2020-04-21] MEDS: SENNOSIDES/DOCUSATE 8.6-50 MG 1 EACH TABLET PO SCH (10:29)
[2020-04-21] MEDS: VENLAFAXINE HCL 37.5 MG CAP.SR.24H PO SCH (10:29)
[2020-04-21] MEDS: PROPRANOLOL HCL 10 MG TABLET PO SCH (10:29)
[2020-04-21] MEDS: FAMOTIDINE 20 MG TABLET PO SCH (10:29)
[2020-04-21] MEDS: PRAMIPEXOLE DI-HCL 0.5 MG TABLET PO SCH (10:29)
[2020-04-21] MEDS: NORMAL SALINE 10 ML SDV (SCHEDULED) IV SCH (10:31)
[2020-04-21] MEDS: ENOXAPARIN SODIUM INJ 40 MG/0.4 ML DISP.SYRIN SUBCUT SCH (10:32)
[2020-04-21 14:48] LABS: VANCOMYCIN,TROUGH 21.4 ug/mL (5.0-20.0)
[2020-04-22] MEDS: METHADONE HCL 10 MG TABLET PO SCH ×4 (00:17→22:21)
[2020-04-22] MEDS: FAMOTIDINE 20 MG TABLET PO SCH ×3 (00:18→22:21)
[2020-04-22] MEDS: VENLAFAXINE HCL 37.5 MG CAP.SR.24H PO SCH ×3 (00:18→22:21)
[2020-04-22] MEDS: PROPRANOLOL HCL 10 MG TABLET PO SCH ×3 (00:19→22:00)
[2020-04-22] MEDS: VANCOMYCIN HCL 1,000 MG in DEXTROSE 5%-WATER 250 ML IV SCH ×4 (00:20→22:20)
[2020-04-22] MEDS: NORMAL SALINE 10 ML SDV (SCHEDULED) IV SCH ×3 (00:21→23:22)
[2020-04-22] MEDS: LORAZEPAM 1 MG TABLET PO PRN ×3 (00:33→22:23)
[2020-04-22 08:13] LABS: ANION GAP 9 (5-19); BLOOD UREA NITROGEN 10 mg/dL (7-20); CARBON DIOXIDE 29 mmol/L (22-30); CHLORIDE 104 mmol/L (98-107); GLUCOSE 78 mg/dL (75-110); POTASSIUM 4.2 mmol/L (3.6-5.0)
[2020-04-22] MEDS: SENNOSIDES/DOCUSATE 8.6-50 MG 1 EACH TABLET PO SCH (09:54)
[2020-04-22] MEDS: NICOTINE 14 MG/24 HR PATCH.TD24 TD SCH (09:54)
[2020-04-22] MEDS: PRAMIPEXOLE DI-HCL 0.5 MG TABLET PO SCH (09:54)
[2020-04-22] MEDS: ENOXAPARIN SODIUM INJ 40 MG/0.4 ML DISP.SYRIN SUBCUT SCH (09:55)
--- NOTE | 2020-04-22 14:27 | PDOC PROGRESS REPORT ---
Subjective Date:: 04/22/20 Subjective:: Patient is sitting up in bed. She is eating lunch. She does not report any discomfort or complaints. Reason For Visit: POSSIBLE INFECTIVE ENDOCARDITIS COVID-19 SUSPECT Physical Exam Vital Signs: Temp Pulse Resp BP Pulse Ox 97.5 F 87 16 108/58 L 98 04/22/20 11:51 04/22/20 11:51 04/22/20 11:51 04/22/20 11:51 04/22/20 11:51 Intake & Output 04/21/20 04/22/20 04/23/20 06:59 06:59 06:59 Intake Total 1050 1530 250 Balance 1050 1530 250 Weight 85.9 kg 83.9 kg General appearance: PRESENT: no acute distress Head exam: PRESENT: atraumatic, normocephalic Ear exam: PRESENT: normal external ear exam. ABSENT: bleeding, drainage Respiratory exam: PRESENT: clear to auscultation otilia, symmetrical, unlabored. ABSENT: rales, rhonchi, tachypnea, wheezes Cardiovascular exam: PRESENT: RRR, +S1, +S2. ABSENT: bradycardia, diastolic murmur, irregular rhythm, systolic murmur, tachycardia GI/Abdominal exam: PRESENT: normal bowel sounds, soft. ABSENT: distended, guarding, tenderness Rectal exam: PRESENT: deferred Gentrourinary exam: ABSENT: indwelling catheter Extremities exam: ABSENT: pedal edema Musculoskeletal exam: PRESENT: ambulatory, normal inspection. ABSENT: deformity, dislocation Neurological exam: PRESENT: alert, awake, oriented to person, oriented to place, oriented to time, oriented to situation, CN II-XII grossly intact. ABSENT: altered Psychiatric exam: PRESENT: appropriate affect, normal mood. ABSENT: agitated, anxious Focused psych exam: ABSENT: delusional, paranoid, restlessness Skin exam: PRESENT: dry, normal color, warm Results Laboratory Results: 04/20/20 06:30 04/22/20 06:55 04/22/20 06:55 Sodium 142.1 Potassium 4.2 Chloride 104 Carbon Dioxide 29 Anion Gap 9 BUN 10 Creatinine 0.72 Est GFR ( Amer) > 60 Glucose 78 Calcium 9.0 Magnesium 2.0 04/12/20 19:35 Troponin I < 0.012 Impressions: Chest X-Ray 04/12/20 15:09 IMPRESSION: FAINT DENSITY IN THE RIGHT UPPER LOBE SUSPICIOUS FOR PNEUMONIA. UNDERLYING MASS ALSO POSSIBLE. POSSIBLE DEVELOPING PNEUMONIA IN THE LEFT LUNG BASE WELL. Chest/Abdomen CTA 04/12/20 18:25 IMPRESSION: Substantially limited evaluation for pulmonary emboli secondary to inadequate contrast bolus timing. No large central filling defect identified. Multifocal consolidative opacity throughout both lungs, much of which appears nodular. Given the patient's age, this is most likely indicative of a multifocal atypical infectious/inflammatory process (to include septic emboli given the peripheral predominance). Follow-up to clearing is recommended. Diffusely heterogeneously attenuating liver parenchyma, especially about the right hepatic lobe, indeterminate. This could indicate geographic areas of hepatic steatosis. Recommend definitive assessment with multiphasic CT or MR of the abdomen. Left supraclavicular, mediastinal, and right hilar lymph node enlargement, presumably reactive. This can also be reassessed for resolution on follow-up imaging. TECHNICAL DOCUMENTATION: Quality ID # [id number]: Final reports with documentation of one or more dose reduction techniques (e.g., Automated exposure control, adjustment of the mA and/or kV according to patient size, use of iterative reconstruction technique) copyright 2011 [employer]- All Rights Reserved PICC Line Insertion 04/15/20 00:00 IMPRESSION: SUCCESSFUL PLACEMENT OF A 5 FR DUAL LUMEN 38 CM PICC IN THE LEFT BASILIC VEIN. Assessment and Plan - Diagnosis (1) Bacteremia due to methicillin resistant Staphylococcus aureus Is this a current diagnosis for this admission?: Yes (2) Observation for suspected infectious endocarditis Is this a current diagnosis for this admission?: Yes (3) Pneumonia Qualifiers: Pneumonia type: due to methicillin-resistant Staphylococcus aureus (MRSA) Laterality: bilateral Lung location: unspecified part of lung Qualified Code(s): J15.212 - Pneumonia due to Methicillin resistant Staphylococcus aureus Is this a current diagnosis for this admission?: Yes (4) Transaminitis Is this a current diagnosis for this admission?: Yes (5) IV drug user Is this a current diagnosis for this admission?: Yes (6) Opioid dependence Qualifiers: Substance use status: uncomplicated Qualified Code(s): F11.20 - Opioid dependence, uncomplicated Is this a current diagnosis for this admission?: Yes (7) Anxiety and depression Is this a current diagnosis for this admission?: Yes (8) Previous known suicide attempt Is this a current diagnosis for this admission?: Yes (9) Opioid withdrawal Is this a current diagnosis for this admission?: Yes (10) Tobacco dependence Is this a current diagnosis for this admission?: Yes (11) Suspected COVID-19 virus infection Is this a current diagnosis for this admission?: Yes (12) Back pain Qualifiers: Back pain location: low back pain Chronicity: acute Back pain laterality: bilateral Sciatica presence: without sciatica Qualified Code(s): M54.5 - Low back pain Is this a current diagnosis for this admission?: Yes (13) Hepatitis C infection Qualifiers: Viral hepatitis chronicity: acute Hepatic coma status: without hepatic coma Qualified Code(s): B17.10 - Acute hepatitis C without hepatic coma Is this a current diagnosis for this admission?: Yes - Plan Summary Summary: Gram positive cocci bacteremia: 04/12/2020 culture + wit MRSA x2 - Repeat cultures without growth. - Tx: Continue Vanc x2 weeks (Therapy initiated 04/12. Predicted end date 04/25.) - Vanc dose as per pharmacy, monitor vanc trough - Monitor BMP every other day while on vanc 04/21/2020-blood culture since initial cultures have been no growth. Vancomycin level reported yesterday was in error. Recheck labs tomorrow. Suspected Infectious Endocarditis: Possible R-sided endocarditis as supported by minor criterion. - TTE without vegitations Pneumonia: CTA with evidence multifocal consolidative opacities possibly infectious/inflammatory versus septic emboli. - Covered by Vanc, additionally treated with Azitho for atypical coverage as per CT. - Azithro therapy ended 04/17. 04/21/2020-patient reports breathing is noticeably improved Opiod dependence: Long standing hx opiod use. Previously treated with Methadone with last dose approximately x1 month ago. Admits to non-compliance due to tedious nature of medication management. - Pt historically treated with 40mg Methadone BID - Continue 20mg Methadone Q8hrs - Again discussed risk of QT prolongation with patient. - EKG 04/15 and 04/16 with QTc 450. - Monitor with weekly EKGs. Anxiety/Depression/Previous suicide attempt: Pt expresses anxiety and depression. With hx previous suicide attempt. - Initiate Effexor 37.5mg BID and Propranolol 10mg BID as per psych recommendations. Back pain: Resolved. Muscular type pain. Likely from laying in hospital bed for past several days. Encouraged ambulating frequently. Provide KPad Acute opiod withdrawal: Withdrawal symptoms improved with treatment above. Last opiod use just prior to admission 04/12. - Provide resources about local methadone clinics for pt prior to discharge to allow for continuum of care IV drug use: Interested in sobriety. Provide information for different rehabilitation/support programs. Hepatitis C: As indicated on + Hep panel and elevated LFTs. Patient made aware of this. Tobacco dependence: Provided >3 minutes of encouragement and education on quitting smoking. Nicotine patch available if needed Tachycardia: Resolved. Suspect COVID-19: Covid-19 negative. Remove from isolation. Methicillin-resistant staph aureus bacteremia: Confirmed by blood cultures. Vancomycin as above. Bilateral septic emboli: Multiple cavitary lesions noted on imaging. Patient still with hemoptysis. Will repeat CT scan of the chest to investigate possibility of empyema. 04/19/2020 Correction Patient does not have septic emboli. 04/20/2020 Methicillin-resistant staph aureus bacteremia without endocarditis-continue vancomycin through scheduled end of treatment which I believe is April 26. The patient had a vancomycin level greater than 100 and a glucose of over 200. This was an error as the blood was drawn while the vancomycin was running. Repeat vancomycin level was 30. Pharmacy is adjusting the dose. We will continue other medications as above. The patient was in much better sp irits today than yesterday. 04/21/2020 Doing well. Endocarditis ruled out. Vancomycin through April 26. No new changes in treatment plan. Recheck laboratory studies tomorrow. 04/22/2020 Serum chemistries completely normal. Treatment plan as above. - Time Time Spent with patient: Less than 15 minutes Medications reviewed and adjusted accordingly: Yes Anticipated Discharge Disposition: Home, Self Care Anticipated Discharge Timeframe: 04/26/2020
[2020-04-23] MEDS ORDERED: PHARMACY COMMUNICATION ORDER MC ONE (05:30)
[2020-04-23] MEDS: METHADONE HCL 10 MG TABLET PO SCH ×3 (06:26→23:39)
[2020-04-23] MEDS: VANCOMYCIN HCL 1,000 MG in DEXTROSE 5%-WATER 250 ML IV SCH ×3 (06:28→23:35)
[2020-04-23] MEDS: LORAZEPAM 1 MG TABLET PO PRN ×3 (06:28→13:26)
[2020-04-23 06:29] LABS: VANCOMYCIN,TROUGH 18.1 ug/mL (5.0-20.0)
[2020-04-23] MEDS: NICOTINE 14 MG/24 HR PATCH.TD24 TD SCH (10:18)
[2020-04-23] MEDS: VENLAFAXINE HCL 37.5 MG CAP.SR.24H PO SCH ×2 (10:19→23:37)
[2020-04-23] MEDS: FAMOTIDINE 20 MG TABLET PO SCH ×2 (10:19→23:37)
[2020-04-23] MEDS: SENNOSIDES/DOCUSATE 8.6-50 MG 1 EACH TABLET PO SCH (10:19)
[2020-04-23] MEDS: PRAMIPEXOLE DI-HCL 0.5 MG TABLET PO SCH (10:21)
[2020-04-23] MEDS: NORMAL SALINE 10 ML SDV (SCHEDULED) IV SCH ×2 (10:22→23:38)
[2020-04-23] MEDS: ENOXAPARIN SODIUM INJ 40 MG/0.4 ML DISP.SYRIN SUBCUT SCH (10:22)
[2020-04-23] MEDS: PROPRANOLOL HCL 10 MG TABLET PO SCH ×2 (10:22→23:37)
--- NOTE | 2020-04-23 11:41 | PDOC PROGRESS REPORT ---
Subjective Date:: 04/23/20 Subjective:: Patient sitting up in bed resting comfortably. She has no complaints this tete ng. Counting the days until end of treatment. Reason For Visit: POSSIBLE INFECTIVE ENDOCARDITIS COVID-19 SUSPECT Physical Exam Vital Signs: Temp Pulse Resp BP Pulse Ox 98.0 F 80 18 107/63 99 04/23/20 10:00 04/22/20 20:02 04/22/20 20:02 04/22/20 20:02 04/22/20 20:02 Intake & Output 04/22/20 04/23/20 04/24/20 06:59 06:59 06:59 Intake Total 1529 2028 250 Balance 1529 2028 250 Weight 83.9 kg 84.9 kg General appearance: PRESENT: no acute distress, cooperative, well-developed, well-nourished. ABSENT: disheveled Head exam: PRESENT: atraumatic, normocephalic Ear exam: PRESENT: normal external ear exam. ABSENT: bleeding, drainage Mouth exam: PRESENT: moist, tongue midline Respiratory exam: PRESENT: clear to auscultation otilia, symmetrical, unlabored. ABSENT: rales, rhonchi, tachypnea, wheezes Cardiovascular exam: PRESENT: RRR, +S1, +S2. ABSENT: bradycardia, diastolic murmur, irregular rhythm, systolic murmur, tachycardia GI/Abdominal exam: PRESENT: normal bowel sounds, soft. ABSENT: distended, guarding, tenderness Extremities exam: ABSENT: pedal edema Musculoskeletal exam: PRESENT: ambulatory, full ROM, normal inspection. ABSENT: deformity, dislocation Neurological exam: PRESENT: alert, awake, oriented to person, oriented to place, oriented to time, oriented to situation, CN II-XII grossly intact. ABSENT: altered Psychiatric exam: PRESENT: appropriate affect. ABSENT: agitated, anxious Focused psych exam: ABSENT: delusional, paranoid, restlessness Results Laboratory Results: 04/20/20 06:30 04/23/20 05:45 04/23/20 05:45 Creatinine 0.60 Est GFR ( Amer) > 60 04/12/20 19:35 Troponin I < 0.012 Impressions: Chest X-Ray 04/12/20 15:09 IMPRESSION: FAINT DENSITY IN THE RIGHT UPPER LOBE SUSPICIOUS FOR PNEUMONIA. UNDERLYING MASS ALSO POSSIBLE. POSSIBLE DEVELOPING PNEUMONIA IN THE LEFT LUNG BASE WELL. Chest/Abdomen CTA 04/12/20 18:25 IMPRESSION: Substantially limited evaluation for pulmonary emboli secondary to inadequate contrast bolus timing. No large central filling defect identified. Multifocal consolidative opacity throughout both lungs, much of which appears nodular. Given the patient's age, this is most likely indicative of a multifocal atypical infectious/inflammatory process (to include septic emboli given the peripheral predominance). Follow-up to clearing is recommended. Diffusely heterogeneously attenuating liver parenchyma, especially about the right hepatic lobe, indeterminate. This could indicate geographic areas of hepatic steatosis. Recommend definitive assessment with multiphasic CT or MR of the abdomen. Left supraclavicular, mediastinal, and right hilar lymph node enlargement, presumably reactive. This can also be reassessed for resolution on follow-up imaging. TECHNICAL DOCUMENTATION: Quality ID # [id number]: Final reports with documentation of one or more dose reduction techniques (e.g., Automated exposure control, adjustment of the mA and/or kV according to patient size, use of iterative reconstruction technique) copyright 2011 [employer]- All Rights Reserved PICC Line Insertion 04/15/20 00:00 IMPRESSION: SUCCESSFUL PLACEMENT OF A 5 FR DUAL LUMEN 38 CM PICC IN THE LEFT BASILIC VEIN. Assessment and Plan - Diagnosis (1) Bacteremia due to methicillin resistant Staphylococcus aureus Is this a current diagnosis for this admission?: Yes (2) Observation for suspected infectious endocarditis Is this a current diagnosis for this admission?: Yes (3) Pneumonia Qualifiers: Pneumonia type: due to methicillin-resistant Staphylococcus aureus (MRSA) Laterality: bilateral Lung location: unspecified part of lung Qualified Code(s): J15.212 - Pneumonia due to Methicillin resistant Staphylococcus aureus Is this a current diagnosis for this admission?: Yes (4) Transaminitis Is this a current diagnosis for this admission?: Yes (5) IV drug user Is this a current diagnosis for this admission?: Yes (6) Opioid dependence Qualifiers: Substance use status: uncomplicated Qualified Code(s): F11.20 - Opioid dependence, uncomplicated Is this a current diagnosis for this admission?: Yes (7) Anxiety and depression Is this a current diagnosis for this admission?: Yes (8) Previous known suicide attempt Is this a current diagnosis for this admission?: Yes (9) Opioid withdrawal Is this a current diagnosis for this admission?: Yes (10) Tobacco dependence Is this a current diagnosis for this admission?: Yes (11) Suspected COVID-19 virus infection Is this a current diagnosis for this admission?: Yes (12) Back pain Qualifiers: Back pain location: low back pain Chronicity: acute Back pain laterality: bilateral Sciatica presence: without sciatica Qualified Code(s): M54.5 - Low back pain Is this a current diagnosis for this admission?: Yes (13) Hepatitis C infection Qualifiers: Viral hepatitis chronicity: acute Hepatic coma status: without hepatic coma Qualified Code(s): B17.10 - Acute hepatitis C without hepatic coma Is this a current diagnosis for this admission?: Yes - Plan Summary Summary: Gram positive cocci bacteremia: 04/12/2020 culture + wit MRSA x2 - Repeat cultures without growth. - Tx: Continue Vanc x2 weeks (Therapy initiated 04/12. Predicted end date 04/25.) - Vanc dose as per pharmacy, monitor vanc trough - Monitor BMP every other day while on vanc 04/21/2020-blood culture since initial cultures have been no growth. Vancomycin level reported yesterday was in error. Recheck labs tomorrow. Suspected Infectious Endocarditis: Possible R-sided endocarditis as supported by minor criterion. - TTE without vegitations Pneumonia: CTA with evidence multifocal consolidative opacities possibly infectious/inflammatory versus septic emboli. - Covered by Vanc, additionally treated with Azitho for atypical coverage as per CT. - Azithro therapy ended 04/17. 04/21/2020-patient reports breathing is noticeably improved Opiod dependence: Long standing hx opiod use. Previously treated with Methadone with last dose approximately x1 month ago. Admits to non-compliance due to tedious nature of medication management. - Pt historically treated with 40mg Methadone BID - Continue 20mg Methadone Q8hrs - Again discussed risk of QT prolongation with patient. - EKG 04/15 and 04/16 with QTc 450. - Monitor with weekly EKGs. Anxiety/Depression/Previous suicide attempt: Pt expresses anxiety and depression. With hx previous suicide attempt. - Initiate Effexor 37.5mg BID and Propranolol 10mg BID as per psych recommendations. Back pain: Resolved. Muscular type pain. Likely from laying in hospital bed for past several days. Encouraged ambulating frequently. Provide KPad Acute opiod withdrawal: Withdrawal symptoms improved with treatment above. Last opiod use just prior to admission 04/12. - Provide resources about local methadone clinics for pt prior to discharge to allow for continuum of care IV drug use: Interested in sobriety. Provide information for different rehabilitation/support programs. Hepatitis C: As indicated on + Hep panel and elevated LFTs. Patient made aware of this. Tobacco dependence: Provided >3 minutes of encouragement and education on quitting smoking. Nicotine patch available if needed Tachycardia: Resolved. Suspect COVID-19: Covid-19 negative. Remove from isolation. Methicillin-resistant staph aureus bacteremia: Confirmed by blood cultures. Vancomycin as above. Bilateral septic emboli: Multiple cavitary lesions noted on imaging. Patient still with hemoptysis. Will repeat CT scan of the chest to investigate possibility of empyema. 04/19/2020 Correction Patient does not have septic emboli. 04/20/2020 Methicillin-resistant staph aureus bacteremia without endocarditis-continue vancomycin through scheduled end of treatment which I believe is April 26. The patient had a vancomycin level greater than 100 and a glucose of over 200. This was an error as the blood was drawn while the vancomycin was running. Repeat vancomycin level was 30. Pharmacy is adjusting the dose. We will continue other medications as above. The patient was in much better spirits today than yesterday. 04/21/2020 Doing well. Endocarditis ruled out. Vancomycin through April 26. No new changes in treatment plan. Recheck laboratory studies tomorrow. 04/22/2020 Serum chemistries completely normal. Treatment plan as above. 04/23/2020 Most recent vancomycin level is back in the therapeutic range at 18 down from a toxic 30. No other labs today. We will recheck labs prior to end of treatment. Pharmacy is checking in dose of vancomycin - Time Time Spent with patient: Less than 15 minutes Medications reviewed and adjusted accordingly: Yes Anticipated Discharge Disposition: Home, Self Care Anticipated Discharge Timeframe: 04/26/2020
[2020-04-24] MEDS: VANCOMYCIN HCL 1,000 MG in DEXTROSE 5%-WATER 250 ML IV SCH ×3 (05:24→22:21)
[2020-04-24] MEDS: METHADONE HCL 10 MG TABLET PO SCH ×3 (05:24→22:20)
[2020-04-24] MEDS: LORAZEPAM 1 MG TABLET PO PRN ×3 (06:37→22:20)
[2020-04-24] MEDS: PRAMIPEXOLE DI-HCL 0.5 MG TABLET PO SCH (10:29)
[2020-04-24] MEDS: FAMOTIDINE 20 MG TABLET PO SCH ×2 (10:29→22:20)
[2020-04-24] MEDS: SENNOSIDES/DOCUSATE 8.6-50 MG 1 EACH TABLET PO SCH (10:29)
[2020-04-24] MEDS: VENLAFAXINE HCL 37.5 MG CAP.SR.24H PO SCH ×2 (10:29→22:20)
[2020-04-24] MEDS: NICOTINE 14 MG/24 HR PATCH.TD24 TD SCH (10:30)
[2020-04-24] MEDS: ENOXAPARIN SODIUM INJ 40 MG/0.4 ML DISP.SYRIN SUBCUT SCH (10:30)
[2020-04-24] MEDS: NORMAL SALINE 10 ML SDV (SCHEDULED) IV SCH ×2 (10:32→22:21)
[2020-04-24] MEDS: PROPRANOLOL HCL 10 MG TABLET PO SCH ×2 (10:32→22:20)
--- NOTE | 2020-04-24 13:44 | PDOC PROGRESS REPORT ---
Subjective Date:: 04/24/20 Subjective:: The patient is sitting up having lunch. She has no new complaints. Reason For Visit: POSSIBLE INFECTIVE ENDOCARDITIS COVID-19 SUSPECT Physical Exam Vital Signs: Temp Pulse Resp BP Pulse Ox 98.6 F 84 16 116/65 99 04/24/20 11:36 04/24/20 11:36 04/24/20 11:36 04/24/20 11:36 04/24/20 11:36 Intake & Output 04/23/20 04/24/20 04/25/20 06:59 06:59 06:59 Intake Total 2028 2520 250 Output Total 200 Balance 2028 2320 250 Weight 84.9 kg 85.9 kg General appearance: PRESENT: no acute distress, cooperative, well-developed Head exam: PRESENT: atraumatic, normocephalic Ear exam: PRESENT: normal external ear exam. ABSENT: bleeding, drainage Mouth exam: PRESENT: moist, tongue midline Respiratory exam: PRESENT: clear to auscultation otilia, symmetrical, unlabored. ABSENT: rales, rhonchi, tachypnea, wheezes Cardiovascular exam: PRESENT: RRR, +S1, +S2, systolic murmur - 7 GI/Abdominal exam: PRESENT: normal bowel sounds, soft. ABSENT: tenderness Rectal exam: PRESENT: deferred Gentrourinary exam: ABSENT: indwelling catheter Extremities exam: ABSENT: calf tenderness, joint swelling, pedal edema Musculoskeletal exam: PRESENT: ambulatory, normal inspection. ABSENT: deformi ty, dislocation Neurological exam: PRESENT: alert, awake, oriented to person, oriented to place, oriented to time, oriented to situation, CN II-XII grossly intact. ABSENT: al tered, motor sensory deficit Psychiatric exam: PRESENT: appropriate affect, normal mood. ABSENT: agitated, anxious Focused psych exam: ABSENT: delusional, paranoid, restlessness Skin exam: PRESENT: dry, normal color, warm. ABSENT: cyanosis, rash Results Laboratory Results: 04/20/20 06:30 04/23/20 05:45 04/12/20 19:35 Troponin I < 0.012 Impressions: Chest X-Ray 04/12/20 15:09 IMPRESSION: FAINT DENSITY IN THE RIGHT UPPER LOBE SUSPICIOUS FOR PNEUMONIA. UNDERLYING MASS ALSO POSSIBLE. POSSIBLE DEVELOPING PNEUMONIA IN THE LEFT LUNG BASE WELL. Chest/Abdomen CTA 11/03/20 18:25 IMPRESSION: Substantially limited evaluation for pulmonary emboli secondary to inadequate contrast bolus timing. No large central filling defect identified. Multifocal consolidative opacity throughout both lungs, much of which appears nodular. Given the patient's age, this is most likely indicative of a multifocal atypical infectious/inflammatory process (to include septic emboli given the peripheral predominance). Follow-up to clearing is recommended. Diffusely heterogeneously attenuating liver parenchyma, especially about the right hepatic lobe, indeterminate. This could indicate geographic areas of hepatic steatosis. Recommend definitive assessment with multiphasic CT or MR of the abdomen. Left supraclavicular, mediastinal, and right hilar lymph node enlargement, presumably reactive. This can also be reassessed for resolution on follow-up imaging. TECHNICAL DOCUMENTATION: Quality ID # [id number]: Final reports with documentation of one or more dose reduction techniques (e.g., Automated exposure control, adjustment of the mA and/or kV according to patient size, use of iterative reconstruction technique) copyright 2011 [employer]- All Rights Reserved PICC Line Insertion 04/15/20 00:00 IMPRESSION: SUCCESSFUL PLACEMENT OF A 5 FR DUAL LUMEN 38 CM PICC IN THE LEFT BASILIC VEIN. Assessment and Plan - Diagnosis (1) Bacteremia due to methicillin resistant Staphylococcus aureus Is this a current diagnosis for this admission?: Yes (2) Observation for suspected infectious endocarditis Is this a current diagnosis for this admission?: Yes (3) Pneumonia Qualifiers: Pneumonia type: due to methicillin-resistant Staphylococcus aureus (MRSA) Laterality: bilateral Lung location: unspecified part of lung Qualified Code(s): J15.212 - Pneumonia due to Methicillin resistant Staphylococcus aureus Is this a current diagnosis for this admission?: Yes (4) Transaminitis Is this a current diagnosis for this admission?: Yes (5) IV drug user Is this a current diagnosis for this admission?: Yes (6) Opioid dependence Qualifiers: Substance use status: uncomplicated Qualified Code(s): F11.20 - Opioid dependence, uncomplicated Is this a current diagnosis for this admission?: Yes (7) Anxiety and depression Is this a current diagnosis for this admission?: Yes (8) Previous known suicide attempt Is this a current diagnosis for this admission?: Yes (9) Opioid withdrawal Is this a current diagnosis for this admission?: Yes (10) Tobacco dependence Is this a current diagnosis for this admission?: Yes (11) Suspected COVID-19 virus infection Is this a current diagnosis for this admission?: Yes (12) Back pain Qualifiers: Back pain location: low back pain Chronicity: acute Back pain laterality: bilateral Sciatica presence: without sciatica Qualified Code(s): M54.5 - Low back pain Is this a current diagnosis for this admission?: Yes (13) Hepatitis C infection Qualifiers: Viral hepatitis chronicity: acute Hepatic coma status: without hepatic coma Qualified Code(s): B17.10 - Acute hepatitis C without hepatic coma Is this a current diagnosis for this admission?: Yes - Plan Summary Summary: Gram positive cocci bacteremia: 04/12/2020 culture + wit MRSA x2 - Repeat cultures without growth. - Tx: Continue Vanc x2 weeks (Therapy initiated 04/12. Predicted end date 04/25.) - Vanc dose as per pharmacy, monitor vanc trough - Monitor BMP every other day while on vanc 04/21/2020-blood culture since initial cultures have been no growth. Vancomycin level reported yesterday was in error. Recheck labs tomorrow. Suspected Infectious Endocarditis: Possible R-sided endocarditis as supported by minor criterion. - TTE without vegitations Pneumonia: CTA with evidence multifocal consolidative opacities possibly infectious/inflammatory versus septic emboli. - Covered by Vanc, additionally treated with Azitho for atypical coverage as per CT. - Azithro therapy ended 04/17. 04/21/2020-patient reports breathing is noticeably improved Opiod dependence: Long standing hx opiod use. Previously treated with Methadone with last dose approximately x1 month ago. Admits to non-compliance due to tedious nature of medication management. - Pt historically treated with 40mg Methadone BID - Continue 20mg Methadone Q8hrs - Again discussed risk of QT prolongation with patient. - EKG 04/15 and 04/16 with QTc 450. - Monitor with weekly EKGs. Anxiety/Depression/Previous suicide attempt: Pt expresses anxiety and depression. With hx previous suicide attempt. - Initiate Effexor 37.5mg BID and Propranolol 10mg BID as per psych recommendations. Back pain: Resolved. Muscular type pain. Likely from laying in hospital bed for past several days. Encouraged ambulating frequently. Provide KPad Acute opiod withdrawal: Withdrawal symptoms improved with treatment above. Last opiod use just prior to admission 04/12. - Provide resources about local methadone clinics for pt prior to discharge to allow for continuum of care IV drug use: Interested in sobriety. Provide information for different rehabilitation/support programs. Hepatitis C: As indicated on + Hep panel and elevated LFTs. Patient made aware of this. Tobacco dependence: Provided >3 minutes of encouragement and education on quitting smoking. Nicotine patch available if needed Tachycardia: Resolved. Suspect COVID-19: Covid-19 negative. Remove from isolation. Methicillin-resistant staph aureus bacteremia: Confirmed by blood cultures. Vancomycin as above. Bilateral septic emboli: Multiple cavitary lesions noted on imaging. Patient still with hemoptysis. Will repeat CT scan of the chest to investigate possibility of empyema. 04/19/2020 Correction Patient does not have septic emboli. 04/20/2020 Methicillin-resistant staph aureus bacteremia without endocarditis-continue vancomycin through scheduled end of treatment which I believe is April 26. The patient had a vancomycin level greater than 100 and a glucose of over 200. This was an error as the blood was drawn while the vancomycin was running. Repeat vancomycin level was 30. Pharmacy is adjusting the dose. We will continue other medications as above. The patient was in much better spirits today than yesterday. 04/21/2020 Doing well. Endocarditis ruled out. Vancomycin through April 26. No new changes in treatment plan. Recheck laboratory studies tomorrow. 04/22/2020 Serum chemistries completely normal. Treatment plan as above. 04/23/2020 Most recent vancomycin level is back in the therapeutic range at 18 down from a toxic 30. No other labs today. We will recheck labs prior to end of treatment. Pharmacy is checking in dose of vancomycin 04/24/2020 End of treatment is 04/26/2020. Tolerating vancomycin. Pharmacy is monitoring and dosing based on renal function. We will check laboratory studies likely Saturday or Saturday to establish discharge baseline. - Time Time Spent with patient: Less than 15 minutes Medications reviewed and adjusted accordingly: Yes Anticipated Discharge Disposition: Home, Self Care Anticipated Discharge Timeframe: within 48 hours
[2020-04-25] MEDS: LORAZEPAM 1 MG TABLET PO PRN ×3 (02:14→21:26)
[2020-04-25] MEDS: VANCOMYCIN HCL 1,000 MG in DEXTROSE 5%-WATER 250 ML IV SCH ×3 (06:00→21:27)
[2020-04-25] MEDS: METHADONE HCL 10 MG TABLET PO SCH ×3 (06:00→21:25)
[2020-04-25] MEDS: VENLAFAXINE HCL 37.5 MG CAP.SR.24H PO SCH ×2 (11:28→21:26)
[2020-04-25] MEDS: FAMOTIDINE 20 MG TABLET PO SCH ×2 (11:28→21:25)
[2020-04-25] MEDS: SENNOSIDES/DOCUSATE 8.6-50 MG 1 EACH TABLET PO SCH (11:28)
[2020-04-25] MEDS: PROPRANOLOL HCL 10 MG TABLET PO SCH ×2 (11:28→21:26)
[2020-04-25] MEDS: PRAMIPEXOLE DI-HCL 0.5 MG TABLET PO SCH (11:29)
[2020-04-25] MEDS: NICOTINE 14 MG/24 HR PATCH.TD24 TD SCH (11:29)
[2020-04-25] MEDS: ENOXAPARIN SODIUM INJ 40 MG/0.4 ML DISP.SYRIN SUBCUT SCH (11:30)
[2020-04-25] MEDS: ACETAMINOPHEN 325 MG TABLET PO PRN (13:06)
[2020-04-25] MEDS: NORMAL SALINE 10 ML SDV (SCHEDULED) IV SCH ×2 (13:07→21:27)
--- NOTE | 2020-04-25 13:07 | PDOC PROGRESS REPORT ---
Subjective Date:: 04/25/20 Subjective:: The patient is resting comfortably. She has questions regarding tomorrow's discharge. She in fact wants to have a smooth transition to a methadone program. She was given information. I encouraged her to make phone calls but I also told her that I would ask discharge planning to assist. Reason For Visit: POSSIBLE INFECTIVE ENDOCARDITIS COVID-19 SUSPECT Physical Exam Vital Signs: Temp Pulse Resp BP Pulse Ox 98.4 F 88 18 79/59 L 100 04/25/20 08:05 04/25/20 08:05 04/25/20 08:05 04/25/20 08:05 04/25/20 08:05 Intake & Output 04/24/20 04/25/20 04/26/20 06:59 06:59 06:59 Intake Total 2520 2787 360 Output Total 200 3 Balance 2320 2784 360 Weight 85.9 kg 85.9 kg General appearance: PRESENT: no acute distress, cooperative, well-developed. ABSENT: disheveled Head exam: PRESENT: atraumatic, normocephalic Eye exam: PRESENT: conjunctiva pink. ABSENT: scleral icterus Ear exam: PRESENT: normal external ear exam. ABSENT: bleeding, drainage Mouth exam: PRESENT: moist, tongue midline Respiratory exam: PRESENT: clear to auscultation otilia, symmetrical, unlabored. ABSENT: rales, rhonchi, tachypnea, wheezes Cardiovascular exam: PRESENT: RRR, +S1, +S2, systolic murmur. ABSENT: bradycardia, diastolic murmur, irregular rhythm, tachycardia GI/Abdominal exam: PRESENT: normal bowel sounds, soft. ABSENT: tenderness Rectal exam: PRESENT: deferred Gentrourinary exam: ABSENT: indwelling catheter Neurological exam: PRESENT: alert, awake, oriented to person, oriented to place, oriented to time, oriented to situation, CN II-XII grossly intact. ABSENT: altered Psychiatric exam: PRESENT: appropriate affect. ABSENT: agitated, anxious Focused psych exam: ABSENT: delusional, paranoid, restlessness Skin exam: PRESENT: dry, normal color, warm. ABSENT: rash Results Laboratory Results: 04/20/20 06:30 04/23/20 05:45 04/12/20 19:35 Troponin I < 0.012 Impressions: Chest X-Ray 04/12/20 15:09 IMPRESSION: FAINT DENSITY IN THE RIGHT UPPER LOBE SUSPICIOUS FOR PNEUMONIA. UNDERLYING MASS ALSO POSSIBLE. POSSIBLE DEVELOPING PNEUMONIA IN THE LEFT LUNG BASE WELL. Chest/Abdomen CTA 04/12/20 18:25 IMPRESSION: Substantially limited evaluation for pulmonary emboli secondary to inadequate contrast bolus timing. No large central filling defect identified. Multifocal consolidative opacity throughout both lungs, much of which appears nodular. Given the patient's age, this is most likely indicative of a multifocal atypical infectious/inflammatory process (to include septic emboli given the peripheral predominance). Follow-up to clearing is recommended. Diffusely heterogeneously attenuating liver parenchyma, especially about the right hepatic lobe, indeterminate. This could indicate geographic areas of hepatic steatosis. Recommend definitive assessment with multiphasic CT or MR of the abdomen. Left supraclavicular, mediastinal, and right hilar lymph node enlargement, presumably reactive. This can also be reassessed for resolution on follow-up imaging. TECHNICAL DOCUMENTATION: Quality ID # [id number]: Final reports with documentation of one or more dose reduction techniques (e.g., Automated exposure control, adjustment of the mA and/or kV according to patient size, use of iterative reconstruction technique) copyright 2011 [employer]- All Rights Reserved PICC Line Insertion 04/15/20 00:00 IMPRESSION: SUCCESSFUL PLACEMENT OF A 5 FR DUAL LUMEN 38 CM PICC IN THE LEFT BASILIC VEIN. Assessment and Plan - Diagnosis (1) Bacteremia due to methicillin resistant Staphylococcus aureus Is this a current diagnosis for this admission?: Yes (2) Observation for suspected infectious endocarditis Is this a current diagnosis for this admission?: Yes (3) Pneumonia Qualifiers: Pneumonia type: due to methicillin-resistant Staphylococcus aureus (MRSA) Laterality: bilateral Lung location: unspecified part of lung Qualified Code(s): J15.212 - Pneumonia due to Methicillin resistant Staphylococcus aureus Is this a current diagnosis for this admission?: Yes (4) Transaminitis Is this a current diagnosis for this admission?: Yes (5) IV drug user Is this a current diagnosis for this admission?: Yes (6) Opioid dependence Qualifiers: Substance use status: uncomplicated Qualified Code(s): F11.20 - Opioid dependence, uncomplicated Is this a current diagnosis for this admission?: Yes (7) Anxiety and depression Is this a current diagnosis for this admission?: Yes (8) Previous known suicide attempt Is this a current diagnosis for this admission?: Yes (9) Opioid withdrawal Is this a current diagnosis for this admission?: Yes (10) Tobacco dependence Is this a current diagnosis for this admission?: Yes (11) Suspected COVID-19 virus infection Is this a current diagnosis for this admission?: Yes (12) Back pain Qualifiers: Back pain location: low back pain Chronicity: acute Back pain laterality: bilateral Sciatica presence: without sciatica Qualified Code(s): M54.5 - Low back pain Is this a current diagnosis for this admission?: Yes (13) Hepatitis C infection Qualifiers: Viral hepatitis chronicity: acute Hepatic coma status: without hepatic coma Qualified Code(s): B17.10 - Acute hepatitis C without hepatic coma Is this a current diagnosis for this admission?: Yes - Plan Summary Summary: Gram positive cocci bacteremia: 04/12/2020 culture + wit MRSA x2 - Repeat cultures without growth. - Tx: Continue Vanc x2 weeks (Therapy initiated 04/12. Predicted end date 04/25.) - Vanc dose as per pharmacy, monitor vanc trough - Monitor BMP every other day while on vanc 04/21/2020-blood culture since initial cultures have been no growth. Vancomycin level reported yesterday was in error. Recheck labs tomorrow. Suspected Infectious Endocarditis: Possible R-sided endocarditis as supported by minor criterion. - TTE without vegitations Pneumonia: CTA with evidence multifocal consolidative opacities possibly infectious/inflammatory versus septic emboli. - Covered by Vanc, additionally treated with Azitho for atypical coverage as per CT. - Azithro therapy ended 04/17. 04/21/2020-patient reports breathing is noticeably improved Opiod dependence: Long standing hx opiod use. Previously treated with Methadone with last dose approximately x1 month ago. Admits to non-compliance due to tedious nature of medication management. - Pt historically treated with 40mg Methadone BID - Continue 20mg Methadone Q8hrs - Again discussed risk of QT prolongation with patient. - EKG 04/15 and 04/16 with QTc 450. - Monitor with weekly EKGs. Anxiety/Depression/Previous suicide attempt: Pt expresses anxiety and depre ssion. With hx previous suicide attempt. - Initiate Effexor 37.5mg BID and Propranolol 10mg BID as per psych recommendations. Back pain: Resolved. Muscular type pain. Likely from laying in hospital bed for past several days. Encouraged ambulating frequently. Provide KPad Acute opiod withdrawal: Withdrawal symptoms improved with treatment above. Last opiod use just prior to admission 04/12. - Provide resources about local methadone clinics for pt prior to discharge to allow for continuum of care IV drug use: Interested in sobriety. Provide information for different rehabilitation/support programs. Hepatitis C: As indicated on + Hep panel and elevated LFTs. Patient made aware of this. Tobacco dependence: Provided >3 minutes of encouragement and education on quitting smoking. Nicotine patch available if needed Tachycardia: Resolved. Suspect COVID-19: Covid-19 negative. Remove from isolation. Methicillin-resistant staph aureus bacteremia: Confirmed by blood cultures. Vancomycin as above. Bilateral septic emboli: Multiple cavitary lesions noted on imaging. Patient still with hemoptysis. Will repeat CT scan of the chest to investigate possibility of empyema. 04/19/2020 Correction Patient does not have septic emboli. 04/20/2020 Methicillin-resistant staph aureus bacteremia without endocarditis-continue vancomycin through scheduled end of treatment which I believe is April 26. The patient had a vancomycin level greater than 100 and a glucose of over 200. This was an error as the blood was drawn while the vancomycin was running. Repeat vancomycin level was 30. Pharmacy is adjusting the dose. We will continue other medications as above. The patient was in much better spirits today than yesterday. 04/21/2020 Doing well. Endocarditis ruled out. Vancomycin through April 26. No new changes in treatment plan. Recheck laboratory studies tomorrow. 04/22/2020 Serum chemistries completely normal. Treatment plan as above. 04/23/2020 Most recent vancomycin level is back in the therapeutic range at 18 down from a toxic 30. No other labs today. We will recheck labs prior to end of treatment. Pharmacy is checking in dose of vancomycin 04/24/2020 End of treatment is 04/26/2020. Tolerating vancomycin. Pharmacy is monitoring and dosing based on renal function. We will check laboratory studies likely Saturday or Saturday to establish discharge baseline. 04/25/2020 Tomorrow is the end of treatment. She will need follow-up with a primary care provider. We will check laboratory studies prior to discharge. I did call discharge planning and encourage the patient to make phone calls herself regarding transition to outpatient therapy. I will try and discharge the patient at an appropriate time so that she can enroll in the appropriate program in a timely fashion. Certainly if necessary I can provide several doses of methadone if the time of discharge causes a delay in enrollment until the next morning. - Time Time Spent with patient: Less than 15 minutes Medications reviewed and adjusted accordingly: Yes Anticipated Discharge Disposition: Home, Self Care Anticipated Discharge Timeframe: within 24 hours
[2020-04-26] MEDS: LORAZEPAM 1 MG TABLET PO PRN (04:19)
[2020-04-26] MEDS: METHADONE HCL 10 MG TABLET PO SCH ×2 (05:21→14:32)
[2020-04-26] MEDS: VANCOMYCIN HCL 1,000 MG in DEXTROSE 5%-WATER 250 ML IV SCH ×2 (05:22→14:30)
[2020-04-26 07:46] LABS: HEMATOCRIT 32.8 % (36.0-47.0); HEMOGLOBIN 10.8 g/dL (12.0-15.5); MEAN CORPUSCULAR HEMOGLOBIN 27.8 pg (27.0-33.4); MEAN CORPUSCULAR HGB CONC 32.9 g/dL (32.0-36.0); MEAN CORPUSCULAR VOLUME 85 fl (80-97); PLATELET COUNT 325 10^3/uL (150-450); RED BLOOD COUNT 3.88 10^6/uL (3.72-5.28); RED CELL DISTRIBUTION WIDTH 14.5 % (11.5-14.0); WHITE BLOOD COUNT 5.8 10^3/uL (4.0-10.5)
[2020-04-26 07:53] LABS: ALBUMIN 3.8 g/dL (3.5-5.0); ALKALINE PHOSPHATASE 55 U/L (38-126); ANION GAP 8 (5-19); ASPARTATE AMINO TRANSFERASE 65 U/L (14-36); BILIRUBIN,DIRECT 0.1 mg/dL (0.0-0.4); BILIRUBIN,TOTAL 0.3 mg/dL (0.2-1.3); BLOOD UREA NITROGEN 12 mg/dL (7-20); CALCIUM 9.4 mg/dL (8.4-10.2); CARBON DIOXIDE 28 mmol/L (22-30); CHLORIDE 105 mmol/L (98-107); GLUCOSE 99 mg/dL (75-110); POTASSIUM 4.3 mmol/L (3.6-5.0)
[2020-04-26] MEDS: FAMOTIDINE 20 MG TABLET PO SCH (11:52)
[2020-04-26] MEDS: VENLAFAXINE HCL 37.5 MG CAP.SR.24H PO SCH (11:52)
[2020-04-26] MEDS: SENNOSIDES/DOCUSATE 8.6-50 MG 1 EACH TABLET PO SCH (11:52)
[2020-04-26] MEDS: NICOTINE 14 MG/24 HR PATCH.TD24 TD SCH (11:53)
[2020-04-26] MEDS: PRAMIPEXOLE DI-HCL 0.5 MG TABLET PO SCH (11:59)
[2020-04-26] MEDS: NORMAL SALINE 10 ML SDV (SCHEDULED) IV SCH (11:59)
[2020-04-26] MEDS: PROPRANOLOL HCL 10 MG TABLET PO SCH (11:59)
[2020-04-26] MEDS: ENOXAPARIN SODIUM INJ 40 MG/0.4 ML DISP.SYRIN SUBCUT SCH (12:00)
--- NOTE | 2020-04-26 12:44 | PDOC DISCHARGE SUMMARY ---
Impression - Admit/DC Date/PCP Admission Date/Primary Care Provider: 04/12/20 23:17 Discharge Date: 04/26/20 - Discharge Diagnosis (1) Bacteremia due to methicillin resistant Staphylococcus aureus Is this a current diagnosis for this admission?: Yes (2) Observation for suspected infectious endocarditis Is this a current diagnosis for this admission?: Yes (3) Pneumonia Is this a current diagnosis for this admission?: Yes (4) Transaminitis Is this a current diagnosis for this admission?: Yes (5) IV drug user Is this a current diagnosis for this admission?: Yes (6) Opioid dependence Is this a current diagnosis for this admission?: Yes (7) Anxiety and depression Is this a current diagnosis for this admission?: Yes (8) Previous known suicide attempt Is this a current diagnosis for this admission?: Yes (9) Opioid withdrawal Is this a current diagnosis for this admission?: Yes (10) Tobacco dependence Is this a current diagnosis for this admission?: Yes (11) Suspected COVID-19 virus infection Is this a current diagnosis for this admission?: Yes (12) Back pain Is this a current diagnosis for this admission?: Yes (13) Hepatitis C infection Is this a current diagnosis for this admission?: Yes - Assessment Summary: Gram positive cocci bacteremia: 04/12/2020 culture + wit MRSA x2 - Repeat cultures without growth. - Tx: Continue Vanc x2 weeks (Therapy initiated 04/12. Predicted end date 04/25.) - Vanc dose as per pharmacy, monitor vanc trough - Monitor BMP every other day while on vanc 04/21/2020-blood culture since initial cultures have been no growth. Vancomycin level reported yesterday was in error. Recheck labs tomorrow. Suspected Infectious Endocarditis: Possible R-sided endocarditis as supported by minor criterion. - TTE without vegitations Pneumonia: CTA with evidence multifocal consolidative opacities possibly infectious/inflammatory versus septic emboli. - Covered by Vanc, additionally treated with Azitho for atypical coverage as per CT. - Azithro therapy ended 04/17. 04/21/2020-patient reports breathing is noticeably improved Opiod dependence: Long standing hx opiod use. Previously treated with Methadone with last dose approximately x1 month ago. Admits to non-compliance due to tedious nature of medication management. - Pt historically treated with 40mg Methadone BID - Continue 20mg Methadone Q8hrs - Again discussed risk of QT prolongation with patient. - EKG 04/15 and 04/16 with QTc 450. - Monitor with weekly EKGs. Anxiety/Depression/Previous suicide attempt: Pt expresses anxiety and depression. With hx previous suicide attempt. - Initiate Effexor 37.5mg BID and Propranolol 10mg BID as per psych recommendations. Back pain: Resolved. Muscular type pain. Likely from laying in hospital bed for past several days. Encouraged ambulating frequently. Provide KPad Acute opiod withdrawal: Withdrawal symptoms improved with treatment above. Last opiod use just prior to admission 04/12. - Provide resources about local methadone clinics for pt prior to discharge to allow for continuum of care IV drug use: Interested in sobriety. Provide information for different rehabilitation/support programs. Hepatitis C: As indicated on + Hep panel and elevated LFTs. Patient made aware of this. Tobacco dependence: Provided >3 minutes of encouragement and education on quitting smoking. Nicotine patch available if needed Tachycardia: Resolved. Suspect COVID-19: Covid-19 negative. Remove from isolation. Methicillin-resistant staph aureus bacteremia: Confirmed by blood cultures. Vancomycin as above. Bilateral septic emboli: Multiple cavitary lesions noted on imaging. Patient still with hemoptysis. Will repeat CT scan of the chest to investigate possibility of empyema. 04/19/2020 Correction Patient does not have septic emboli. 04/20/2020 Methicillin-resistant staph aureus bacteremia without endocarditis-continue vancomycin through scheduled end of treatment which I believe is April 26. The patient had a vancomycin level greater than 100 and a glucose of over 200. This was an error as the blood was drawn while the vancomycin was running. Repeat vancomycin level was 30. Pharmacy is adjusting the dose. We will continue other medications as above. The patient was in much better spirits today than yesterday. 04/21/2020 Doing well. Endocarditis ruled out. Vancomycin through April 26. No new changes in treatment plan. Recheck laboratory studies tomorrow. 04/22/2020 Serum chemistries completely normal. Treatment plan as above. 04/23/2020 Most recent vancomycin level is back in the therapeutic range at 18 down from a toxic 30. No other labs today. We will recheck labs prior to end of treatment. Pharmacy is checking in dose of vancomycin 04/24/2020 End of treatment is 04/26/2020. Tolerating vancomycin. Pharmacy is monitoring and dosing based on renal function. We will check laboratory studies likely Saturday or Saturday to establish discharge baseline. 04/25/2020 Tomorrow is the end of treatment. She will need follow-up with a primary care provider. We will check laboratory studies prior to discharge. I did call discharge planning and encourage the patient to make phone calls herself regarding transition to outpatient therapy. I will try and discharge the patient at an appropriate time so that she can enroll in the appropriate program in a timely fashion. Certainly if necessary I can provide several doses of methadone if the time of discharge causes a delay in enrollment until the next morning. 04/26/2020 The patient is ready for discharge after this afternoon's vancomycin dose. The soonest appointment at a rehab facility is on the . I told her I had be willing to give her a prescription for methadone but she would have to stretch out the supply. In addition a smaller prescription for lorazepam. I encouraged her to look up stress management and coping skills on the Internet to start and she can certainly initiate behavioral management and stress management prior to her appointment. She states that there is initial appointment and that if she is accepted to the program there is another appointment before she finally is given the medication. She certainly needs to try and focus her energies. I told her if she does not abstain from illicit drug use that her life expectancy will be greatly shortened. She has been started on antidepressant medication as well. She will need an appointment at the [facility] initially and then when she obtains Medicaid (she is initiating the application) she will need to establish with a primary care provider. - Additional Information Resuscitation Status: Full Code Discharge Diet: Regular Discharge Activity: Activity As Tolerated Referrals: [facility] [Provider Group] - 05/04/20 10:15 am (BEFORE GOING TO APPT. APPLICATION RELEASE MANAGER A NEW PATIENT PACKET.) Prescriptions: Lorazepam [Ativan 1 mg Tablet] 1 mg PO Q8HP PRN 5 Days #10 tablet PRN Reason: Anxiety Methadone HCl [Dolophine 10 mg Tablet] 20 mg PO Q8 #30 tablet Venlafaxine HCl ER [Effexor Xr 37.5 mg Cap.sr] 37.5 mg PO Q12 #30 cap.sr.24h Propranolol HCl [Inderal 10 mg Tablet] 10 mg PO Q12 15 Days #30 tablet Pramipexole Di-HCl [Mirapex 0.5 mg Tablet] 0.5 mg PO DAILY 15 Days #15 tablet Home Medications: Lorazepam [Ativan 1 mg Tablet] 1 mg PO Q8HP PRN 5 Days #10 tablet 04/26/20 Methadone HCl [Dolophine 10 mg Tablet] 20 mg PO Q8 #30 tablet 04/26/20 Nicotine [Nicoderm 14 mg/24 Hr Transdermal Patch] 1 each TD DAILY patch.td24 04/26/20 Pramipexole Di-HCl [Mirapex 0.5 mg Tablet] 0.5 mg PO DAILY 15 Days #15 tablet 04/26/20 Propranolol HCl [Inderal 10 mg Tablet] 10 mg PO Q12 15 Days #30 tablet 04/26/20 Venlafaxine HCl ER [Effexor Xr 37.5 mg Cap.sr] 37.5 mg PO Q12 #30 cap.sr.24h 04/26/20 History of Present Illiness History of Present Illness: CLAUDIO EPSTEIN is a 25 year old female with no significant past medical history apart from an episode of SVT 6 years back now presents with 2 days duration of sudden onset chest pain, shortness of breath. She reports that the chest pain was 10/10 intensity, sharp, aggravated by deep breathing and movement. She also endorses subjective fever but denies any history of cough, runny nose, sore throat, congestion, nausea, vomiting or diarrhea. She also denies palpitation, orthopnea, PND. She has a history of IV drug use about a month back, the exact name of the drug which she could not remember without intent to harm herself but currently she denies any suicidal ideation. Denies any history of leg swelling, long distance travel or prolonged immobilization. She has no self or family history of blood clots in the past and currently is not on any medication including control. She denies any recent sick contact history. Hospital Course Hospital Course: As above Physical Exam Vital Signs: Temp Pulse Resp BP Pulse Ox 98.6 F 77 15 118/65 100 04/26/20 09:00 04/26/20 09:00 04/26/20 09:00 04/26/20 09:00 04/26/20 09:00 Intake & Output 04/25/20 04/26/20 04/27/20 06:59 06:59 06:59 Intake Total 6058 1953 Output Total 3 Balance 2781953 Weight 85.9 kg 88.2 kg General appearance: PRESENT: cooperative, well-developed Ear exam: PRESENT: normal external ear exam. ABSENT: bleeding, drainage Respiratory exam: PRESENT: clear to auscultation otilia, symmetrical, unlabored. ABSENT: rales, rhonchi, tachypnea, wheezes Cardiovascular exam: PRESENT: RRR, +S1, +S2 GI/Abdominal exam: PRESENT: normal bowel sounds, soft. ABSENT: tenderness Rectal exam: PRESENT: deferred Gentrourinary exam: ABSENT: indwelling catheter Extremities exam: ABSENT: pedal edema Neurological exam: PRESENT: alert, awake, oriented to person, oriented to place, oriented to time, oriented to situation, CN II-XII grossly intact. ABSENT: altered Psychiatric exam: PRESENT: appropriate affect. ABSENT: agitated, anxious Focused psych exam: ABSENT: delusional, paranoid, restlessness Results Laboratory Results: WBC 5.8 10^3/uL (4.0-10.5) 04/26/20 05:56 RBC 3.88 10^6/uL (3.72-5.28) 04/26/20 05:56 Hgb 10.8 g/dL (12.0-15.5) L 04/26/20 05:56 Hct 32.8 % (36.0-47.0) L 04/26/20 05:56 MCV 85 fl (80-97) 04/26/20 05:56 MCH 27.8 pg (27.0-33.4) 04/26/20 05:56 MCHC 32.9 g/dL (32.0-36.0) 04/26/20 05:56 RDW 14.5 % (11.5-14.0) H 04/26/20 05:56 Plt Count 325 10^3/uL (150-450) 04/26/20 05:56 Lymph % (Auto) 9.1 % (13-45) L 04/13/20 03:58 [place] % (Auto) 3.2 % (3-13) 04/13/20 03:58 Eos % (Auto) 0.1 % (0-6) 04/13/20 03:58 Baso % (Auto) 0.1 % (0-2) 04/13/20 03:58 Absolute Neuts (auto) 10.3 10^3/uL (1.7-8.2) H 04/13/20 03:58 Absolute Lymphs (auto) 1.1 10^3/uL (0.5-4.7) 04/13/20 03:58 Absolute Monos (auto) 0.4 10^3/uL (0.1-1.4) 04/13/20 03:58 Absolute Eos (auto) 0.0 10^3/uL (0.0-0.6) 04/13/20 03:58 Absolute Basos (auto) 0.0 10^3/uL (0.0-0.2) 04/13/20 03:58 Seg Neutrophils % 87.5 % (42-78) H 04/13/20 03:58 Sodium 140.9 mmol/L (137-145) 04/26/20 05:56 Potassium 4.3 mmol/L (3.6-5.0) 04/26/20 05:56 Chloride 105 mmol/L (98-107) 04/26/20 05:56 Carbon Dioxide 28 mmol/L (22-30) 04/26/20 05:56 Anion Gap 8 (5-19) 04/26/20 05:56 BUN 12 mg/dL (7-20) 04/26/20 05:56 Creatinine 0.88 mg/dL (0.52-1.25) 04/26/20 05:56 Est GFR ( Amer) > 60 (>60) 04/26/20 05:56 Est GFR (MDRD) Non-Af > 60 (>60) 04/26/20 05:56 Glucose 99 mg/dL (75-110) 04/26/20 05:56 Calcium 9.4 mg/dL (8.4-10.2) 04/26/20 05:56 Magnesium 2.0 mg/dL (1.6-2.3) 04/22/20 06:55 Total Bilirubin 0.3 mg/dL (0.2-1.3) 04/26/20 05:56 Direct Bilirubin 0.1 mg/dL (0.0-0.4) 04/26/20 05:56 Neonat Total Bilirubin Not Reportable 04/26/20 05:56 Neonat Direct Bilirubin Not Reportable 04/26/20 05:56 Neonat Indirect Bili Not Reportable 04/26/20 05:56 AST 65 U/L (14-36) H 04/26/20 05:56 ALT 93 U/L (<35) H 04/26/20 05:56 Alkaline Phosphatase 55 U/L (38-126) 04/26/20 05:56 Troponin I < 0.012 ng/mL 04/12/20 19:35 Total Protein 7.0 g/dL (6.3-8.2) 04/26/20 05:56 Albumin 3.8 g/dL (3.5-5.0) 04/26/20 05:56 Serum HCG, Qual NEGATIVE (NEGATIVE) 04/12/20 19:35 Urine Color EDDIE 04/12/20 20:30 Urine Appearance SLIGHTLY-CLOUDY 04/12/20 20:30 Urine pH 5.0 (5.0-9.0) 04/12/20 20:30 Ur Specific Barton 1.031 04/12/20 20:30 Urine Protein 100 mg/dL (NEGATIVE) H 04/12/20 20:30 Urine Glucose (UA) NEGATIVE mg/dL (NEGATIVE) 04/12/20 20:30 Urine Ketones NEGATIVE mg/dL (NEGATIVE) 04/12/20 20:30 Urine Blood NEGATIVE (NEGATIVE) 04/12/20 20:30 Urine Nitrite NEGATIVE (NEGATIVE) 04/12/20 20:30 Urine Bilirubin SMALL (NEGATIVE) H 04/12/20 20:30 Urine Urobilinogen 4.0 mg/dL (<2.0) H 04/12/20 20:30 Ur Leukocyte Esterase NEGATIVE (NEGATIVE) 04/12/20 20:30 Urine WBC (Auto) 2 /HPF 04/12/20 20:30 Urine RBC (Auto) 13 /HPF 04/12/20 20:30 Urine Bacteria (Auto) TRACE /HPF 04/12/20 20:30 Squamous Epi Cells Auto 12 /HPF 04/12/20 20:30 Urine Mucus (Auto) MANY /LPF 04/12/20 20:30 Urine Ascorbic Acid NEGATIVE (NEGATIVE) 04/12/20 20:30 Time Trough Drawn Cancelled 04/26/20 05:56 Vancomycin Trough Cancelled 04/26/20 05:56 Urine Opiates Screen UNCONFIRMED POSITIVE 04/12/20 20:30 Urine Methadone Screen NEGATIVE 04/12/20 20:30 Ur Barbiturates Screen NEGATIVE 04/12/20 20:30 Ur Phencyclidine Scrn NEGATIVE 04/12/20 20:30 Ur Amphetamines Screen 04/12/20 20:30 U Benzodiazepines Scrn NEGATIVE 04/12/20 20:30 Urine Cocaine Screen NEGATIVE 04/12/20 20:30 U Marijuana (THC) Screen UNCONFIRMED POSITIVE 04/12/20 20:30 COVID-19 Source See comment 04/12/20 19:35 COVID-19 (SERENA) Not Detected (Not Detect) 04/12/20 19:35 Hepatitis A IgM Ab Negative (Negative) 04/14/20 03:49 Hep Bs Antigen Negative (Negative) 04/14/20 03:49 Hep B Core IgM Ab Negative (Negative) 04/14/20 03:49 Hepatitis C Antibody >11.0 s/co ratio (0.0-0.9) H 04/14/20 03:49 Influenza A (Rapid) NEGATIVE (NEGATIVE) 04/12/20 19:35 Influenza B (Rapid) NEGATIVE (NEGATIVE) 04/12/20 19:35 04/12/20 19:35 Troponin I < 0.012 Impressions: Chest X-Ray 04/12/20 15:09 IMPRESSION: FAINT DENSITY IN THE RIGHT UPPER LOBE SUSPICIOUS FOR PNEUMONIA. UNDERLYING MASS ALSO POSSIBLE. POSSIBLE DEVELOPING PNEUMONIA IN THE LEFT LUNG BASE WELL. Chest/Abdomen CTA 04/12/20 18:25 IMPRESSION: Substantially limited evaluation for pulmonary emboli secondary to inadequate contrast bolus timing. No large central filling defect identified. Multifocal consolidative opacity throughout both lungs, much of which appears nodular. Given the patient's age, this is most likely indicative of a multifocal atypical infectious/inflammatory process (to include septic emboli given the peripheral predominance). Follow-up to clearing is recommended. Diffusely heterogeneously attenuating liver parenchyma, especially about the right hepatic lobe, indeterminate. This could indicate geographic areas of hepatic steatosis. Recommend definitive assessment with multiphasic CT or MR of the abdomen. Left supraclavicular, mediastinal, and right hilar lymph node enlargement, presumably reactive. This can also be reassessed for resolution on follow-up imaging. TECHNICAL DOCUMENTATION: Quality ID # [id number]: Final reports with documentation of one or more dose reduction techniques (e.g., Automated exposure control, adjustment of the mA and/or kV according to patient size, use of iterative reconstruction technique) copyright 2011 [employer]- All Rights Reserved PICC Line Insertion 04/15/20 00:00 IMPRESSION: SUCCESSFUL PLACEMENT OF A 5 FR DUAL LUMEN 38 CM PICC IN THE LEFT BASILIC VEIN. Plan Health Concerns: History of IV drug use. 2 weeks before an appointment can be obtained at a program. She needs to establish at least at [facility] until she is able to obtain Medicaid. Plan of Treatment: Completed antibiotic therapy. Continue other medications as prescribed. Goals: Successful completion of rehab program Time Spent: Greater than 30 Minutes Stroke Is this a Stroke Patient?: No Acute Heart Failure Is this a Heart Failure Patient?: No
[2020-04-26 13:17] VITALS: BP 109/57
== END 2020-04-26 17:25 | disposition home or self-care (01) | DRG 178 ==
LOC: ER 14:45 → EH 23:17 → ICU 04-13 01:20 → 5 04-14 21:31
PROVIDERS: ADMIT Student in an Organized Health Care Education/Training Program; ATTEND Hospitalist
PROC: 02HV33Z Insertion of Infusion Device into Superior Vena Cava, Percutaneous Approach (ICD-10-PCS; principal; 2020-04-15)
PROC: B518ZZA Fluoroscopy of Superior Vena Cava, Guidance (ICD-10-PCS; 2020-04-15)
PROC: B548ZZA Ultrasonography of Superior Vena Cava, Guidance (ICD-10-PCS; 2020-04-15)
DX: J15.212 Pneumonia due to Methicillin resistant Staphylococcus aureus (principal); F11.23 Opioid dependence with withdrawal; B17.10 Acute hepatitis C without hepatic coma; R78.81 Bacteremia; B95.62 Methicillin resistant Staphylococcus aureus infection as the cause of diseases classified elsewhere; Z03.89 Encounter for observation for other suspected diseases and conditions ruled out; R74.01 Elevation of levels of liver transaminase levels; F41.9 Anxiety disorder, unspecified; F32.9 Major depressive disorder, single episode, unspecified; F17.200 Nicotine dependence, unspecified, uncomplicated; F15.10 Other stimulant abuse, uncomplicated; F12.10 Cannabis abuse, uncomplicated; M54.5 Low back pain; R00.0 Tachycardia, unspecified; Z20.828 Contact with and (suspected) exposure to other viral communicable diseases; Z91.14 Patient's other noncompliance with medication regimen; Z86.79 Personal history of other diseases of the circulatory system; Z81.8 Family history of other mental and behavioral disorders; Z91.5 Personal history of self-harm; Z91.040 Latex allergy status
CPT/HCPCS: 1922; 36415; 36573; 71045; 71275; 80048; 80053; 80074; 80202; 80307; 81001; 82565; 83735; 84484; 84703; 85025; 85027; 87040; 87077; 87150; 87186; 87635; 87804; 93005; 93010; 93306; 93312; 96361; 96365; 96375; 99285; C9803; J0456; J0696; J1100; J1642; J1650; J1885; J2704; J3370; J3490; J7030; J7060; J7120